=== PATIENT | male | born 1955 | race African-American/Black ===

== ENCOUNTER 2023-11-10 20:20 | Emergency (ER) | payer OTHER, SELFPAY ==
[2023-11-10 20:33] VITALS: BP 146/98
[2023-11-10 20:45] LABS: % Basophils 0.4 % (0-2); % Eosinophils 0.6 % (0-6); % Immature Granulocytes 1.2 % (0-0.5); % Lymphocytes 17.5 % (20.5-51.1); % Monocytes 5.1 % (1.7-9.3); % Neutrophils 75.2 % (42.2-75.2); Absolute Eosinophils 0.1 10^3/uL (0-0.7); Absolute Immature Granulocytes 0.1 10^3/uL (0-0.05); Absolute Lymphocytes 1.8 10^3/uL (1.2-3.4); Absolute Monocytes 0.5 10^3/uL (0.1-0.6); Absolute Neutrophils 7.5 10^3/uL (1.4-6.5); Hematocrit 45.4 % (39.0-52.0); Hemoglobin 14.8 g/dL (13.0-18.0); Mean Corp Hgb Conc. 32.6 g/dL (33.0-37.0); Mean Corpuscular Hgb 31.8 pg (27.0-31.0); Mean Corpuscular Volume 97.4 fL (80.0-94.0); Mean Platelet Volume 10.5 fL (7.4-10.4); Nucleated Red Blood Cells % 0 % (-); Platelet Count 270 10^3/uL (130-400); Red Blood Cell Count 4.66 10^6/uL (4.70-6.10); Red Cell Dist. Width 13.5 % (11.5-14.5)
[2023-11-10 21:05] VITALS: BP 130/87
[2023-11-10 21:09] LABS: ALT (SGPT) 24 U/L (0-50); AST (SGOT) 26 U/L (17-59); Albumin 4.1 g/dl (3.5-5.0); Alkaline Phosphatase 81 U/L (38-126); Blood Urea Nitrogen 18 mg/dl (9-20); Calcium 9.2 mg/dl (8.4-10.2); Carbon Dioxide 24 mmol/L (22-30); Chloride 108 mmol/L (98-107); Glucose 138 mg/dl (70-99); Potassium 4.4 mmol/L (3.5-5.1); Sodium 136 mmol/L (135-145); Total Bilirubin 0.8 mg/dl (0.2-1.3); eGFR > 60.00
[2023-11-10 21:12] LABS: Troponin I < 0.012 ng/ml
--- NOTE | 2023-11-10 21:25 | ED.GENMED ---
History of Present Illness
General
Chief Complaint: Heart Rate Problem
Source: patient
Exam Limitations: none
Time Seen by Provider: 11/10/23 21:12
Nursing documentation reviewed up to this point in time: agreed with
Travel History
Have you had any contact with someone who has COVID-19?: No
Do you have any symptoms of coronavirus? Fever > 100 degrees, chills, cough, shortness of breath, sore throat, loss of taste or smell, muscle aches, or headache?: No
History of Present Illness
History of Present Illness:
Patient with history of paroxysmal atrial fibrillation on Coumadin, presents to ED secondary to recurrent chest palpitations associated with 'not feeling well' starting this afternoon. In addition, his Apple Watch also told him that he was in
atrial fibrillation rhythm, which has not happened since cardiac ablation 2 years ago. Denies chest pain. Denies shortness of breath. Denies nausea or vomiting. Denies any diaphoresis. Denies recent illness. Denies recent change in medications
today. Denies recent travel or surgery. Patient has not missed any of his medications.
Past History
Past History
ED Past Medical History: Arrthythmia (afib-on coumadin), Cancer (Prostate cancer), HTN, Hypercholesterolemia and Other (Osteoarthritis)
ED Past Surgical History: Cardiac (Cardioversion for A. fib), Orthopedic (Right carpal tunnel release, right elbow surgery 07/21/2017; bilateral hip replacement 2002, Achilles tendon repair, left knee arthroscopy) and Urological (Prostatectomy)
Social History
Tobacco: Non-smoker
Alcohol: Occasional
Personal:
Living: with family
Employment: Employed
Family History
Family History: Hypertension
Review of Systems
Review of Systems
Allergies reviewed?: Yes
All Other Systems: ROS reviewed and negative except as documented in HPI and ROS
Constitutional: Reports no symptoms
EENT: Reports no symptoms
Respiratory: Reports no symptoms
Cardiac: Reports palpitations
ABD/GI: Reports no symptoms
: Reports no symptoms
Musculoskeletal: Reports no symptoms
Skin: Reports no symptoms
Neurological: Reports no symptoms
Phy Exam
Physical Exam
Physical Exam:
Physical Exam
General: no apparent distress, not acutely ill. afebrile
Head: nc/at eomi
Neck: supple. no meningeal signs.
Heart: irregularly irregular, tachycardic, no murmur. equal radial pulses.
Lungs: no acute respiratory distress. clear bilaterally
Abdomen: normal bowel sounds. not tender.
Neuro: alert and oriented. no focal neurological deficits
Skin: no rash
Psychiatric: well kept. interactive and cooperative
Extremities: no edema. no calf tenderness.
Course
Orders/Labs/Results
Orders:
Orders
11/10/23 20:23
Electrocardiogram (*1) Urgent
Reason for Study: Palpitations
EKG- Treatment ONCE
11/10/23 20:33
Cardiac Monitoring- Treatment ONCE
IV Insert/Care/Rem.- Treatment PRN
O2 Therapy [RESP] Urgent
Titrate/Wean O2 to maintain O2 sat greater than (%): 90
Special Instructions: Maintain sats >/=90%
Pulse Ox/spot Check [RESP] Urgent
Quantity: 1
Special Instructions: ON ROOM AIR
11/10/23 20:39
Complete Blood Count/With Diff Urgent
Comprehensive Metabolic Panel Urgent
Troponin I Urgent
11/10/23 21:22
Diltiazem HCl [Cardizem] 20 mg IV NOW STA
11/10/23 21:23
0.9% Sodium Chloride 500 ml [Nss] 500 ml IV BOLUS
11/10/23 21:24
PTT Urgent
Prothrombin Time Urgent
11/10/23 22:00
Diltiazem 125 mg/125 ml Nss [Cardizem] 125 mg in 125 ml IV PER PROTOCOL
Initial dose in mg/hr, then titrate:: 5
Titrate to keep:: Heart rate 80-100 bpm
Titrate by mg/hr:: 5 mg/hr
Frequency of titrations (minutes):: 15
Maximum dose in mg/hr:: 15
Abnormal Lab Results
11/10/23 11/10/23
20:39 21:24
RBC 4.66 L 10^6/uL
(4.70-6.10)
MCV 97.4 H fL
(80.0-94.0)
MCH 31.8 H pg
(27.0-31.0)
MCHC 32.6 L g/dL
(33.0-37.0)
MPV 10.5 H fL
(7.4-10.4)
Abs Immat Gran (auto) 0.1 H 10^3/uL
(0-0.05)
Absolute Neuts (auto) 7.5 H 10^3/uL
(1.4-6.5)
Immature Gran % 1.2 H %
(0-0.5)
Lymphocytes % 17.5 L %
(20.5-51.1)
PT 28.8 H Sec
(11.4-14.6)
APTT 54.1 H Sec
(23.4-35.0)
Chloride 108 H mmol/L
(98-107)
Glucose 138 H mg/dl
(70-99)
11/10/23 20:39
11/10/23 20:39
Vital Signs
Initial and Last Documented VS:
Initial Vital Signs
Temp Pulse Resp Pulse Ox
98.1 F 45 16 98
11/10/23 20:24 11/10/23 20:24 11/10/23 20:24 11/10/23 20:24
Last Documented Vital Signs
Temp Pulse Resp BP Pulse Ox
98.1 F 76 20 111/92 98
11/10/23 20:24 11/10/23 23:15 11/10/23 23:15 11/10/23 23:00 11/10/23 20:24
MDM/Problems Addressed
MDM/Problems Addressed:
Patient presents to ED in rapid atrial fibrillation, improved after IV fluid administration along with Cardizem treatment. Patient otherwise with unremarkable blood work. Discussed treatment options with patient and his spouse, including
cardioversion versus better rate control with outpatient follow-up with his client services director. At this time, as he has no complaints and feels 'normal', would like to be discharged home. As such, decision made to discharge patient home with following
recommendation: Patient is to take 100 mg of metoprolol in a.m. and 75 mg of metoprolol at nighttime, until reevaluation with his client services director. Will return to ED with any worsening symptoms.
*EKG
Interpreted by ED Provider?: Yes
EKG Intrepretation Date: 11/10/23
Heart Rate: 119
Rate: tachycardiac
Rhythm: a-fib
[place]: normal axis
Interval: normal interval
*Critical Care Note
Total Time (30-74mins, 75-104mins- exclusive of procedures): Not Applicable
ED Attending Note
-
Portions of this chart may have been created with voice recognition software.� Occasional wrong word or��sound alike� substitutions may have occurred due to the inherent limitations of voice recognition software.
Discharge Plan
Departure
Patient Disposition: Home (Routine Discharge)
Date of Disposition: 11/10/23
Time of Disposition: 22:59
Patient with high blood pressure during this ER visit?: Yes
Condition: Good
Discharge Problem:
Atrial fibrillation
Instructions: Atrial Fibrillation (DC)
Prescriptions:
No Action
atorvastatin 10 MG tablet
10 mg PO HS
pantoprazole 40 MG tablet,delayed release (DR/EC)
40 mg PO DAILY PRN (Reason: indigestion)
spironolactone 25 mg Tablet
25 mg PO DAILY Qty: 30 3RF
warfarin [Jantoven] 5 mg Tablet
5 mg PO QPM Qty: 30 0RF
Entresto 49-51 mg Tablet
1 tab PO BID Qty: 60 1RF
metoprolol succinate 50 mg Tablet Extended Release 24 Hr
75 mg PO BID
amiodarone [Pacerone] 200 mg Tablet
400 mg PO DAILY Qty: 60 1RF
Referrals:
Bill Dodson DO [Family Provider] -
José Francisco MD [Active] -
Activity Restrictions/Additional Instructions:
As discussed, please follow-up with your client services director for further evaluation and treatment. In the meantime, please take extra 25 mg of metoprolol for better heart rate control.
Interventions
Interventions:
*Risk Screen - Suicide Last Done: 11/10/23 20:30
*General Assessment Last Done: 11/10/23 20:30
*Neglect/Abuse Screening Last Done: 11/10/23 20:30
ED- Fall Risk Assessment Last Done: 11/10/23 21:45
*ED COVID-19 Vaccine History Last Done: 11/10/23 20:30
*Nursing Disposition Last Done: 11/10/23 23:46
ED- Cardiac Assessment Last Done: 11/10/23 21:45
ED- Pulmonary Assessment Last Done: 11/10/23 21:45
Discharge Date and Time
Discharge Date/Time: 11/10/23 23:48
Print Language: MAURITIAN
[2023-11-10] MEDS: CARDIZEM 20 MG IV (21:37)
[2023-11-10 21:38] LABS: INR 2.67; PT 28.8 Sec (11.4-14.6)
[2023-11-10] MEDS: NSS 500 IV (21:38)
[2023-11-10 21:39] LABS: APTT 54.1 Sec (23.4-35.0)
[2023-11-10] MEDS: CARDIZEM 125 IV (21:56)
[2023-11-10 22:00] VITALS: BP 108/73
[2023-11-10 23:00] VITALS: BP 111/92
== END 2023-11-10 23:48 | disposition home or self-care (01) ==
LOC: EMR 20:20
PROVIDERS: EMERGENCY PHYSICIAN Emergency Medicine; FAMILY PHYSICIAN Family Medicine
DX: I48.91 Unspecified atrial fibrillation (principal); Z79.01 Long term (current) use of anticoagulants; Z85.46 Personal history of malignant neoplasm of prostate; I10 Essential (primary) hypertension; E78.00 Pure hypercholesterolemia, unspecified; M19.90 Unspecified osteoarthritis, unspecified site; Z82.49 Family history of ischemic heart disease and other diseases of the circulatory system
CPT/HCPCS: 99283; 96374; 96376; 96361; 80053; 84484; 85025; 85610; 85730; 93005

== ENCOUNTER 2023-11-12 23:59 | Inpatient (IN) | payer OTHER, SELFPAY ==
[2023-11-12] VITALS (7 sets, daily range): BP systolic 121–129; BP diastolic 77–100; BMI 41.2
--- NOTE | 2023-11-12 21:16 | ED.GENMED ---
History of Present Illness
General
Chief Complaint: Heart Rate Problem
Source: patient
Exam Limitations: none
Time Seen by Provider: 11/12/23 21:02
Travel History
Have you had any contact with someone who has COVID-19?: No
Do you have any symptoms of coronavirus? Fever > 100 degrees, chills, cough, shortness of breath, sore throat, loss of taste or smell, muscle aches, or headache?: No
History of Present Illness
History of Present Illness:
This is a 68 year old male that comes in with c/o atrial fib. States that he was her on and he was given the option of cardioversion of mediation change. Patient choose to change his medication and went home. States that his Metoprolol was
increased to 100mg in the am and 75mg in the pm. States that he called them on Tuesday as he was not feeling any better and made an appointment for Tuesday. States that he is still not feeling good so he came in. States that he is SOB with walking
and has a headache. Denies any fever, chills, chest pain, abd pain, nausea, vomiting, diarrhea, dizziness, urinary burning.
Past History
Past History
ED Past Medical History: Arrthythmia (afib-on coumadin), Cancer (Prostate cancer), GERD, HTN, Hypercholesterolemia and Other (Osteoarthritis, back and neck pain, )
ED Past Surgical History: Cardiac (Cardioversion for A. fib), Orthopedic (Right carpal tunnel release, right elbow surgery 07/21/2017; bilateral hip replacement 2002, Achilles tendon repair, left knee arthroscopy Bilateral knee replacements) and
Urological (Prostatectomy)
Social History
Tobacco: Non-smoker
Alcohol: Occasional
Personal:
Living: with family
Employment: Employed
Family History
Family History: Hypertension
Review of Systems
Review of Systems
All Other Systems: ROS reviewed and negative except as documented in HPI and ROS
Constitutional: Reports no symptoms; Denies fever or chills
EENT: Reports no symptoms
Respiratory: Reports trouble breathing; Denies cough
Cardiac: Denies chest pain
ABD/GI: Reports no symptoms; Denies abdominal pain, nausea, vomiting or diarrhea
: Reports no symptoms
Musculoskeletal: Reports no symptoms
Skin: Reports no symptoms
Neurological: Reports headache; Denies dizzy
Psychiatric: Reports no symptoms
Phy Exam
General Physical Exam
General Presentation: no apparent distress
General age: appears stated age
General Skin: warm and dry
General Habitus: normal
General Mental: alert
General Hydration: appears well hydrated
ENT Exam
ENT Exam: TM's normal, pharynx normal and neck supple
Eye Exam
Eye Exam: EOMI
Cardiovascular Exam
Cardiovascular Exam: no edema, normal peripheral pulses and irregularly irregular
Pulmonary Exam
Pulmonary Exam: lungs clear, no respiratory distress, no rales, chest non tender, no crackles, no rhonchi, no wheezing and no cough
Gastrointestinal Exam
Gastrointestinal Exam: normal bowel sounds, non tender, soft, no organomegaly, no pulsatile mass and non distended
Musculoskeletal Exam
Musculoskeletal Exam: full ROM and no edema
Skin Exam
Skin Exam: normal color, warm/dry, no rash and no petechia
Psychiatric Exam
Psychiatric Exam: normal mood/affect
Course
Orders/Labs/Results
Orders:
Orders
11/12/23 19:07
EKG [Electrocardiogram (*1)] Urgent
Reason for Study: Palpitations
11/12/23 19:08
EKG- Treatment ONCE
11/12/23 21:14
CR Chest - 2 Views Urgent
Comment:
Reason For Exam: SOB
11/12/23 21:15
Metoprolol [Lopressor] 5 mg IV NOW STA
11/12/23 21:22
Complete Blood Count/With Diff Urgent
11/12/23 21:23
Comprehensive Metabolic Panel Urgent
NT-proBNP Urgent
Prothrombin Time Urgent
Troponin I Urgent
Abnormal Lab Results
11/12/23 11/12/23
21:22 21:23
RBC 4.47 L 10^6/uL
(4.70-6.10)
MCH 32.0 H pg
(27.0-31.0)
MPV 10.5 H fL
(7.4-10.4)
Abs Immat Gran (auto) 0.2 H 10^3/uL
(0-0.05)
Absolute Neuts (auto) 7.0 H 10^3/uL
(1.4-6.5)
Immature Gran % 2.0 H %
(0-0.5)
Neutrophils % 77.9 H %
(42.2-75.2)
Lymphocytes % 14.3 L %
(20.5-51.1)
PT 31.1 H Sec
(11.4-14.6)
Chloride 110 H mmol/L
(98-107)
Glucose 122 H mg/dl
(70-99)
11/12/23 21:22
11/12/23 21:23
Chloride slightly elevated. Glucose nonfastiong. PT 31.1 with INR 3.0. Troponin <0.012, Pro-BNP 1600
Vital Signs
Initial and Last Documented VS:
Initial Vital Signs
Temp Pulse Resp BP Pulse Ox
98.2 F 60 18 127/77 96
11/12/23 19:06 11/12/23 19:06 11/12/23 19:06 11/12/23 19:06 11/12/23 19:06
Last Documented Vital Signs
Temp Pulse Resp BP Pulse Ox
98.2 F 110 20 122/90 98
11/12/23 19:06 11/12/23 22:17 11/12/23 22:17 11/12/23 22:17 11/12/23 22:17
MDM/Problems Addressed
Differential Diagnosis Includes:
Atrial fib
MDM/Problems Addressed:
This is a 68 year old male that comes in with c/o atrial fib. States that he was here on with atrial fib and he decided to change his medication instead of a Cardioversion. States that he is not feeling well. States that he is SOB with
walking and has a headache.
Will check labs, chest x-ray. Will give Lopressor.
Back into see patient. Patient heart rate is 111 at this time and he remains in Atrial fib. Case discussed with Dr. Kent. Will admit patient has Chest x-ray shows slight CHF and will give IV lasix. Patient will see weight loss physician tomorrow. Hospitalist
notified.
Chronic conditions affecting care:
Atrial fib,
Acute Exacerbation and/or Progression of Chronic Illness:
Atrial fib
*Radiology
Radiology exam reviewed: preliminary read by ED provider (Chest- slight increased vascular congestion. )
*Pulse Oximetry
Patient hypoxic: no
*EKG
Interpreted by ED Provider?: Yes
Heart Rate: 125
Rate: tachycardiac
Rhythm: a-fib
[place]: normal axis
QRS Pattern: normal QRS
Ischemia: T-wave inversion (V5, V6)
*Dive Master Interpretation
Rate: tachycardiac
Interpretation: abnormal
Heart Rate: 120
Rhythm: a-fib
*Critical Care Note
Total Time (30-74mins, 75-104mins- exclusive of procedures): Not Applicable
ED Attending Note
-
Portions of this chart may have been created with voice recognition software.� Occasional wrong word or��sound alike� substitutions may have occurred due to the inherent limitations of voice recognition software.
Discharge Plan
Departure
Patient Disposition: Admit
Date of Disposition: 11/12/23
Time of Disposition: 23:13
Admit to: Telemetry
Presentation/result/management discussed w/ accepting MD/DO: Hospitalist
Patient with high blood pressure during this ER visit?: Yes
Condition: Good
Covid-19: Not Applicable
Discharge Problem:
Atrial fibrillation, Mild congestive heart failure
Prescriptions:
No Action
atorvastatin 10 MG tablet
10 mg PO HS
pantoprazole 40 MG tablet,delayed release (DR/EC)
40 mg PO DAILY PRN (Reason: indigestion)
spironolactone 25 mg Tablet
25 mg PO DAILY Qty: 30 3RF
warfarin [Jantoven] 5 mg Tablet
5 mg PO QPM Qty: 30 0RF
Entresto 49-51 mg Tablet
1 tab PO BID Qty: 60 1RF
metoprolol succinate 50 mg Tablet Extended Release 24 Hr
75 mg PO BID
amiodarone [Pacerone] 200 mg Tablet
400 mg PO DAILY Qty: 60 1RF
Referrals:
Bill Dodson DO [Family Provider] -
Interventions
Interventions:
*Risk Screen - Suicide Last Done: 11/12/23 21:01
*General Assessment Last Done: 11/12/23 21:01
*Neglect/Abuse Screening Last Done: 11/12/23 21:01
ED- Fall Risk Assessment Last Done: 11/12/23 21:01
*ED COVID-19 Vaccine History Last Done: 11/12/23 21:01
ED- Cardiac Assessment Last Done: 11/12/23 21:01
ED- Pulmonary Assessment Last Done: 11/12/23 21:01
Discharge Date and Time
Print Language: GEORGIAN
[2023-11-12 21:36] LABS: % Basophils 0.7 % (0-2); % Eosinophils 0.4 % (0-6); % Lymphocytes 14.3 % (20.5-51.1); % Monocytes 4.7 % (1.7-9.3); % Neutrophils 77.9 % (42.2-75.2); Absolute Basophils 0.1 10^3/uL (0-0.2); Absolute Immature Granulocytes 0.2 10^3/uL (0-0.05); Absolute Lymphocytes 1.3 10^3/uL (1.2-3.4); Absolute Monocytes 0.4 10^3/uL (0.1-0.6); Hematocrit 41.8 % (39.0-52.0); Hemoglobin 14.3 g/dL (13.0-18.0); Mean Corp Hgb Conc. 34.2 g/dL (33.0-37.0); Mean Corpuscular Volume 93.5 fL (80.0-94.0); Mean Platelet Volume 10.5 fL (7.4-10.4); Nucleated Red Blood Cells % 0 % (-); Platelet Count 263 10^3/uL (130-400); Red Blood Cell Count 4.47 10^6/uL (4.70-6.10); Red Cell Dist. Width 13.5 % (11.5-14.5)
[2023-11-12 21:45] LABS: PT 31.1 Sec (11.4-14.6)
[2023-11-12 21:49] LABS: ALT (SGPT) 30 U/L (0-50); AST (SGOT) 29 U/L (17-59); Albumin 3.7 g/dl (3.5-5.0); Alkaline Phosphatase 73 U/L (38-126); Blood Urea Nitrogen 20 mg/dl (9-20); Calcium 9.2 mg/dl (8.4-10.2); Carbon Dioxide 22 mmol/L (22-30); Chloride 110 mmol/L (98-107); Estimated Creatinine Clearance > 125 ml/min; Glucose 122 mg/dl (70-99); Sodium 137 mmol/L (135-145); Total Bilirubin 0.7 mg/dl (0.2-1.3); Total Protein 6.6 g/dl (6.3-8.2); eGFR > 60.00
[2023-11-12 22:05] LABS: NT-proBNP 1600 pg/ml; Potassium 4.3 mmol/L (3.5-5.1); Troponin I < 0.012 ng/ml
[2023-11-12] MEDS: LOPRESSOR 5 MG IV (22:13)
--- NOTE | 2023-11-12 23:43 | HPS.HSE ---
Family Physician
-
Family Physician: Bill Dodson
Chief Complaint
-
Afib with rapid rate and CHF
History of Present Illness
68 year old male that comes in with c/o atrial fib with rapid rate. States that he was here two days ago and was given the option of cardioversion of mediation change, he choose to change his medication and went home. States that his Metoprolol was
increased to 100mg in the am and 75mg in the pm. States that today he is still not feeling good so he came in. He has SOB with walking and has a headache. He Denies any fever, chills, chest pain, abd pain, nausea, vomiting, diarrhea, dizziness,
urinary burning. He was sitting in bed leaning forward at the time of my interview.
Medical History
Past Medical History
Past Medical History: Reports Other
Additional Past Medical History:
Arrthythmia (afib-on coumadin), multiple cardioversions
Cancer (Prostate cancer),
GERD,
essential HTN,
Hypercholesterolemia
Osteoarthritis,
back and neck pain
Right carpal tunnel release,
right elbow surgery 07/21/2017;
bilateral hip replacement 2002,
Achilles tendon repair,
left knee arthroscopy
Bilateral knee replacements
Prostatectomy
Past Surgical History: Reports Other
Additional Past Surgical History:
See above
Social History
Tobacco: Non-smoker
Alcohol: None
Drug: None
Personal:
Living: With Family
Family History
Family History: Not pertinent
Allergies / Home Medications
Allergies reflects when Allergies were last updated in [employer].
Home Medications with original date entered in [employer]
Allergy/Medication List:
Allergies
Allergy/AdvReac Type Severity Reaction Status Date / Time
No Known Drug Allergies Allergy Unknown Verified 11/10/23 20:30
Home Medications
atorvastatin 10 mg tablet 10 mg PO HS High cholesterol 01/27/18
pantoprazole 40 mg tablet,delayed release 40 mg PO DAILY PRN indigestion 03/24/22
sacubitril 49 mg-valsartan 51 mg tablet (Entresto) 1 tab PO BID #60 tabs 03/30/22
spironolactone 25 mg tablet 25 mg PO DAILY #30 tabs 03/30/22
warfarin 5 mg tablet (Jantoven) 5 mg PO QPM #30 tabs 03/30/22
amiodarone 200 mg tablet (Pacerone) 400 mg (2 x 200 mg) PO DAILY #60 tabs 04/22/22
metoprolol succinate 50 mg tablet,extended release 24 hr 75 mg PO BID 04/22/22
Review of Systems
-
History Source: Patient
A 12 point ROS was completed and negative except as noted: Yes
Physical Exam
Vital Signs
Vital Signs
Temp Pulse Resp BP Pulse Ox
98.2 F 110 20 122/90 98
11/12/23 19:06 11/12/23 22:17 11/12/23 22:17 11/12/23 22:17 11/12/23 22:17
Physical Exam
General: Well Developed, Well Nourished, No Apparent Distress, Comfortable and Obese
HEENT: NormoCephalic, Nose Appears Normal and Ears Appear Normal
Respiratory: Clear and Decreased Breath Sounds
Cardiac: S1/S2, Irregular Rhythm and Tachycardia
GI: Soft, Non Tender and Non Distended
Musculoskeletal: No Clubbing, No Cyanosis and No Edema
Skin: Warm and Dry; No Rash
Neuro: Awake, Alert, Oriented and AO x 3
Psych: Calm
Laboratory Results
-
11/12/23 21:22
11/12/23 21:23
Laboratory Results
PT 31.1 Sec (11.4-14.6) H 11/12/23 21:23
INR 3.00 11/12/23 21:23
Total Bilirubin 0.7 mg/dl (0.2-1.3) 11/12/23 21:23
AST 29 U/L (17-59) 11/12/23 21:23
ALT 30 U/L (0-50) 11/12/23 21:23
Alkaline Phosphatase 73 U/L (38-126) 11/12/23 21:23
Troponin I < 0.012 ng/ml 11/12/23 21:23
Data Reviewed
-
Lab Data: Labs Reviewed by me
Impression/Plan
-
IMPRESSION:
68 man with afib, on coumadin, here with rapid afib. INR 3.0
PLAN:
1. Afib with RVR - continue dilt gtt, titrate as needed
Cardiology consult in am
Tele
MARVA
IMU given the titration of the dilt gtt
2. Probable CHF from the afib
IV lasix
Full code
COumadin for DVTp
[2023-11-12] MEDS: LASIX 20 MG IV (23:54)
[2023-11-13] VITALS (11 sets, daily range): BP systolic 118–158; BP diastolic 78–119; BMI 40.3
[2023-11-13] MEDS: CARDIZEM 125 IV ×2 (00:04→21:38)
[2023-11-13] MEDS: CARDIZEM 15 MG IV (00:04)
[2023-11-13 04:06] LABS: Hematocrit 43.6 % (39.0-52.0); Mean Corp Hgb Conc. 34.4 g/dL (33.0-37.0); Mean Corpuscular Hgb 31.8 pg (27.0-31.0); Mean Corpuscular Volume 92.6 fL (80.0-94.0); Mean Platelet Volume 10.3 fL (7.4-10.4); Platelet Count 241 10^3/uL (130-400); Red Blood Cell Count 4.71 10^6/uL (4.70-6.10); Red Cell Dist. Width 13.3 % (11.5-14.5); White Blood Cell Count 10.5 10^3/uL (4.8-10.8)
[2023-11-13 04:32] LABS: Troponin I < 0.012 ng/ml
[2023-11-13 04:33] LABS: Blood Urea Nitrogen 18 mg/dl (9-20); Calcium 9.4 mg/dl (8.4-10.2); Carbon Dioxide 23 mmol/L (22-30); Chloride 108 mmol/L (98-107); Estimated Creatinine Clearance > 125 ml/min; Glucose 111 mg/dl (70-99); Sodium 138 mmol/L (135-145); eGFR > 60.00
--- NOTE | 2023-11-13 06:26 | PTCARENOTE ---
Pt admitted to IVU at approximately 0340. HR Afib 90s. Cardizem infusing at 5mg/hr. Pt belongings w/ pt. oriented pt to unit.
[2023-11-13] MEDS: ENTRESTO 49 MG/51 MG 1 TAB PO ×2 (08:04→19:28)
[2023-11-13] MEDS: TOPROL XL 75 MG PO ×2 (08:05→19:29)
[2023-11-13] MEDS: LASIX 20 MG IV ×2 (08:06→16:28)
[2023-11-13 11:40] LABS: Glycohemoglobin (HgbA1c) 5.9 % (4.0-5.6)
[2023-11-13] MEDS: TYLENOL 650 MG PO (12:49)
[2023-11-13 12:54] LABS: Troponin I < 0.012 ng/ml
--- NOTE | 2023-11-13 13:17 | W.PN.HOSP.TC ---
Today's Communication/Plan
-
Monitor vital signs see plan
Echo
Wean dilt drip as tolerated
cw metoprolol
on coumadin; monitor INR
Assessment / Plan
Assessment / Plan
General: Well Developed, Well Nourished, No Apparent Distress, Comfortable and Obese
HEENT: NormoCephalic, Nose Appears Normal and Ears Appear Normal
Respiratory: Clear and Decreased Breath Sounds
Cardiac: S1/S2, Irregular Rhythm and Tachycardia
GI: Soft, Non Tender and Non Distended
Musculoskeletal: No Clubbing, No Cyanosis and No Edema
Skin: Warm and Dry; No Rash
Neuro: Awake, Alert, Oriented and AO x 3
Psych: Calm
History of paroxysmal atrial fibrillation, now in A-fib with RVR
Now heart rate improved
Cardiology following
had ablation x2 in past
Check echo
questionable CHF from the afib; unknown EF
IV lasix for now
check echo
Last echo in 2021 with EF 50 to 55%. Mild dilated aortic root and ascending aorta
on metoprolol and entresto
cardiology consulted
On Coumadin, INR daily
Prediabetes
A1c 5.9
Monitor
Full code
Coumadin for DVTp
Anticipated Discharge: 24 - 48 hours
Subjective/Interval History
-
Date of Service: November 13, 2023
Denies chest pain
Objective Data
-
Labs:
Laboratory Results
11/13/23
03:57
WBC 10.5
Hgb 15.0
Hct 43.6
Plt Count 241
Sodium 138
Potassium 4.0
Chloride 108 H
Carbon Dioxide 23
BUN 18
Creatinine 0.7
Glucose 111 H
Calcium 9.4
Vital Signs:
Vital Signs
Temp Pulse Resp BP Pulse Ox
98 F 91 14 136/102 96
11/13/23 08:37 11/13/23 10:30 11/13/23 08:37 11/13/23 08:04 11/13/23 08:42
I&O
11/12/23 11/13/23 11/14/23
06:59 06:59 06:59
Output Total 2350 / 2350 1275 / 1275
Balance -2350 / -2350 -1275 / -1275
[2023-11-13 16:32] LABS: INR 2.24; PT 24.7 Sec (11.4-14.6)
--- NOTE | 2023-11-13 16:42 | CON.CAR ---
Addendum entered and electronically signed by Shakir Vides MD 11/14/23 08:13:
INR 10/14/2022 2.2 at PCP office
INR 09/15/2022 2.5 at PCP office
Held in Sep a few days but not since.
INR all good
Original Note:
Consultation
Consultation Request
Date/Time Consultation Requested: 11/13/2023 at 0335 hrs.
Date/Time Consultation Performed: 11/13/2023 at 1530 hrs.
Requesting Provider: Maximino Boyce MD
Performing Provider: Shakir Vides MD
Reason for Consultation: Recurrent atrial fibrillation
Medical History
-
Chief Complaint: Fatigue and palpitations
History of Present Illness:
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 This is his first recurrence of arrhythmia since April 2022.
Onset on April 22, 2022 he required repeat ablation. His first ablation was on January 02, 2021.
Symptoms in atrial fibrillation include rapid irregular palpitations fatigue and exercise intolerance. Symptoms persisted despite increasing metoprolol dose.
In the past he has had a tachycardia induced cardiomyopathy. His LV function is improved and he is continuing on medications.
Past Medical History
Past Medical History: Arrhythmias, HTN and Other (DJD, urinary frequency with bladder spasms, prostate cancer, joint disease)
Past Surgical History: Orthopedic (Bilateral total hip and knee replacements) and Urological (Prostatectomy)
Social History
Tobacco: Former Smoker
Alcohol: Occasional
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
Family History
Family History: Other (Father had a pacemaker and systemic hypertension. Mother has hypertension)
Allergies / Home Medications
Allergy/AdvReac Type Severity Reaction Status Date / Time
No Known Drug Allergies Allergy Unknown Verified 11/10/23 20:30
�Medication �Instructions �Recorded �Confirmed �Type
atorvastatin 10 mg tablet 10 mg PO HS High cholesterol 01/27/18 11/13/23 History
sacubitril 49 mg-valsartan 51 mg 1 tab PO BID #60 tabs 03/30/22 11/13/23 Rx
tablet (Entresto)
metoprolol succinate 50 mg 75 mg PO AMHS 04/22/22 11/13/23 History
tablet,extended release 24 hr
metoprolol succinate 100 mg PO AMHS 11/13/23 11/13/23 History
mirabegron 50 mg tablet,extended 50 mg PO DAILY 11/13/23 11/13/23 History
release 24 hr (Myrbetriq)
oxycodone-acetaminophen 10 mg-325 1 tab PO BID 11/13/23 11/13/23 History
mg tablet (Percocet)
warfarin 5 mg tablet (Jantoven) 9 mg PO QPM 11/13/23 11/13/23 History
Review of Systems
-
Constitutional: Fatigue
Cardiac: Palpitations
Abdomen/GI: No Symptoms
Physical Exam
Vital Signs
Temp Pulse Resp BP Pulse Ox
98.2 F 99 20 127/84 93
11/13/23 15:57 11/13/23 16:15 11/13/23 15:57 11/13/23 15:57 11/13/23 15:57
Lab Results
11/13/23 03:57
11/13/23 03:57
Troponin I < 0.012 ng/ml 11/13/23 12:02
Dxo-R-Mvdllqqrrcm Pept 1600 pg/ml 11/12/23 21:23
Physical Exam
General: Well Developed and Well Nourished
HEENT: Normocephalic and Anicteric
Respiratory: Clear
Cardiac: S1/S2 and Irregular Rhythm
GI: Soft, Non Tender and Non Distended
Musculoskeletal: No Clubbing and No Cyanosis
Skin: Warm
Neuro: AO x 3 and No Motor Deficits
Psych: Calm
Impression / Plan
-
68 y/o male with AFIB on warfarin s/p PVI with CT line block 01/02/21, repeat PVI 04/22/2022, HTN, heart failure with improved ejection fraction, DJD, morbid obesity, BMI 40, and prostate CA who is here for continued symptomatic AFIB with palpitations
and fatigue
Recurrent symptomatic persisting A-fib: First recurrence since his second ablation in April 2022.
-Fast despite increased beta-jason dose
-Warfarin managed by PCP.
-[id number] 3 (heart failure, hypertension, and age 2)
-Will obtain INR is from PCP office
-If INR is permit we will progress to cardioversion on 11/14/2023
-Will update echocardiogram
-If A-fib recurs after cardioversion we can consider adding antiarrhythmic drugs. I personally sent few patients for third ablation. In the past the patient's QTc interval was felt to be a little bit long for dofetilide but we can reconsider once
he is in sinus rhythm. I reviewed risk factor modification for A-fib including weight loss, increased exercise, abstinence from alcohol. Third ablation is not out of the question. His severe left atrial enlargement suggested may be difficult for
ablation alone to hold sinus rhythm and we may want to see if we can add dofetilide. Given his young age I would be reluctant to add amiodarone for the long-term.
Heart failure with improved ejection fraction
-Continue current medical therapy
Hypertension
DJD
Back pain
Remote prostate cancer
Hx NSVT
Subjective:
Data Reviewed
-
EKG: Tracing Personally Visualized and interpreted (A-fib [address] and T wave changes. PVC.) and Other
Radiology: Other (Cardiac echo 08/06/2022 LVEF 50 to 55%, mild cLVH, ascending aorta dilated 4.2 cm, severe LAE, mild MR)
--- NOTE | 2023-11-13 17:15 | PTCARENOTE ---
Pt's HR went up in 130-140's while in BR. Recovered back to 90's with rest. He denies pain, has some SOB w/ exertion.
[2023-11-13] MEDS: COUMADIN 5 MG PO (18:16)
[2023-11-13] MEDS: LIPITOR 10 MG PO (21:39)
[2023-11-14] VITALS (8 sets, daily range): BP systolic 111–156; BP diastolic 65–101; BMI 39.6
--- NOTE | 2023-11-14 01:56 | PTCARENOTE ---
Pt received at start of shift, HR A-fib. Cardizem infusing at 5mg/hr. Pt educated on plan for CV (11/13) and NPO status at 0000. Pt states understanding, no questions at this time. Pt denies any CP, SOB, or lightheadedness/dizziness at this time.
Informed to notify RN if any questions, call melendrez within reach.
[2023-11-14 03:56] LABS: % Basophils 0.9 % (0-2); % Eosinophils 3.2 % (0-6); % Immature Granulocytes 1.9 % (0-0.5); % Lymphocytes 32.3 % (20.5-51.1); % Monocytes 6.8 % (1.7-9.3); % Neutrophils 54.9 % (42.2-75.2); Absolute Basophils 0.1 10^3/uL (0-0.2); Absolute Eosinophils 0.2 10^3/uL (0-0.7); Absolute Immature Granulocytes 0.1 10^3/uL (0-0.05); Absolute Lymphocytes 2.4 10^3/uL (1.2-3.4); Absolute Monocytes 0.5 10^3/uL (0.1-0.6); Absolute Neutrophils 4.1 10^3/uL (1.4-6.5); Hematocrit 42.3 % (39.0-52.0); Hemoglobin 14.6 g/dL (13.0-18.0); Mean Corp Hgb Conc. 34.5 g/dL (33.0-37.0); Mean Corpuscular Hgb 31.9 pg (27.0-31.0); Mean Corpuscular Volume 92.6 fL (80.0-94.0); Mean Platelet Volume 10.2 fL (7.4-10.4); Nucleated Red Blood Cells % 0 % (-); Platelet Count 235 10^3/uL (130-400); Red Blood Cell Count 4.57 10^6/uL (4.70-6.10); Red Cell Dist. Width 13.5 % (11.5-14.5); White Blood Cell Count 7.5 10^3/uL (4.8-10.8)
[2023-11-14 04:07] LABS: INR 2.22; PT 24.5 Sec (11.4-14.6)
[2023-11-14 04:20] LABS: Blood Urea Nitrogen 19 mg/dl (9-20); Calcium 9.1 mg/dl (8.4-10.2); Carbon Dioxide 26 mmol/L (22-30); Chloride 107 mmol/L (98-107); Estimated Creatinine Clearance 124 ml/min; Glucose 101 mg/dl (70-99); Potassium 3.6 mmol/L (3.5-5.1); Sodium 137 mmol/L (135-145); eGFR > 60.00
--- NOTE | 2023-11-14 08:02 | W.PN.CD ---
Today's Communication / Plan
-
keep NPO for cardioversion today
( NOTE INRs have been consstent reviewed INRs sharri had data from [facility] ( 08/22/23 - 2.8, 09/15/23 2.5, 10/15/23 -2.2). Back injection in early Sep but has been back on Coumadin for 6 weeks and clearly therapeutic for the past month ( >3 weeks).
INR 2.2
Impression / Plan
-
68 y/o male with AFIB on warfarin s/p PVI with CT line block 01/02/21, repeat PVI 04/22/2022, HTN, heart failure with improved ejection fraction, DJD, morbid obesity, BMI 40, and prostate CA who is here for continued symptomatic AFIB with palpitations
and fatigue
Recurrent symptomatic persisting A-fib: First recurrence since his second ablation in April 2022.
-Fast despite increased beta-jason dose
-Warfarin managed by PCP.
-[id number] 3 (heart failure, hypertension, and age 2)
-Will obtain INR is from PCP office
-If INR is permit we will progress to cardioversion on 11/14/2023
-Will update echocardiogram
-If A-fib recurs after cardioversion we can consider adding antiarrhythmic drugs. Per Dr Vides . In the past the patient's QTc interval was felt to be a little bit long for dofetilide but we can reconsider once he is in sinus rhythm. Third
ablation is not out of the question. Given his young age Brianne try ot avoid amiodarone for the long-term.
Heart failure with improved ejection fraction
-Continue current medical therapy
Hypertension
DJD
Back pain
Remote prostate cancer
Hx NSVT
Subjective:
Physical Exam
Vital Signs/Labs
Vital Signs
Temp Pulse Resp BP Pulse Ox
98.4 F 102 18 129/101 99
11/14/23 07:22 11/14/23 06:45 11/14/23 07:22 11/14/23 03:36 11/14/23 07:22
11/13/23 11/14/23 11/15/23
06:59 06:59 06:59
Actual Weight 131 kg 128.7 kg
11/14/23 03:41
11/14/23 03:41
PT 24.5 Sec (11.4-14.6) H 11/14/23 03:41
INR 2.22 11/14/23 03:41
11/12/23
21:23
Gxe-Q-Gmjtjctsvyh Pept 1600
LAB Results
11/12/23 11/13/23 11/13/23
21:23 03:57 08:31
Troponin I < 0.012 < 0.012 Cancelled
11/13/23 11/13/23 11/13/23
09:34 09:34 12:02
Troponin I Cancelled Cancelled < 0.012
Physical Exam
Cardiovascular: Rhythm/rate is irregular
GI: Soft
Neuro/Psych: Alert
Data Reviewed
-
Date of Service: November 14, 2023
Medical Decision Making: Reviewed Test Results
Echo: Other (await. ordered. )
Medical Tests (PFT, Pathology etc): Report Reviewed by me
Labs: Labs Reviewed by me
--- NOTE | 2023-11-14 09:04 | ITS.CL.CARDI ---
[facility] - Cardioversion
Cardioversion
Procedure Report:
Date of Procedure: November 14 2023
Procedure: Cardioversion
Indication: Symptomatic atrial fibrillation
Performing Physician: Maynor Stringer DO, FACC
Technique: The patient was brought to the holding area. Signed informed consent was obtained. A time out was called and performed. The patient was anesthetized by the anesthesia service. Anticoagulation status was reviewed and appropriate. R2 pads
were placed anteriorly and posteriorly. A 250 J synchronized biphasic shock restored normal sinus rhythm without significant bradycardia. There were no complications.
Conclusion: Uncomplicated cardioversion from atrial fibrillation to sinus rhythm.
Recommendation: Routine post cardioversion care. Continue retirement anticoagulation. Discussed with his via telephone.
--- NOTE | 2023-11-14 10:19 | CM ---
Reviewed chart. Met with Mr. Stark to review discharge plans. He states prior to admission he resides with his spouse, daughter, [id number] and granddaughter in a two story home with three steps to enter. He states he has to go up a full
flight of steps to get to bedroom/full bathroom. He states he has a powder room on the first floor. He states prior to admission he ambulates with a single point cane and independent with ambulation. He states he has a single point cane at home. He
states he has a prescription plan. Medical work-up in progress. The discharge plan is to return home with his family when medically stable.
[2023-11-14] MEDS: TOPROL XL 75 MG PO ×2 (11:27→20:34)
[2023-11-14] MEDS: KCL 40 MEQ PO (11:28)
[2023-11-14] MEDS: LASIX 20 MG IV ×2 (11:28→17:34)
[2023-11-14] MEDS: ENTRESTO 49 MG/51 MG 1 TAB PO ×2 (12:45→20:35)
--- NOTE | 2023-11-14 13:58 | W.PN.HOSP.TC ---
Today's Communication/Plan
-
Monitor vital signs see plan
Continue with Lasix
Continue with metoprolol
Echo pending
Assessment / Plan
Assessment / Plan
General: Well Developed, Well Nourished, No Apparent Distress, Comfortable and Obese
HEENT: NormoCephalic, Nose Appears Normal and Ears Appear Normal
Respiratory: Clear and Decreased Breath Sounds
Cardiac: S1/S2, Irregular Rhythm and Tachycardia
GI: Soft, Non Tender and Non Distended
Musculoskeletal: No Clubbing, No Cyanosis and No Edema
Skin: Warm and Dry; No Rash
Neuro: Awake, Alert, Oriented and AO x 3
Psych: Calm
History of paroxysmal atrial fibrillation, now in A-fib with RVR
Cardiology following, status post cardioversion 11/14/23, successfull
had ablation x2 in past
Check echo pending
questionable CHF from the afib; unknown EF
IV lasix for now
check echo pending
Last echo in 2021 with EF 50 to 55%. Mild dilated aortic root and ascending aorta
on metoprolol and entresto
cardiology consulted
On Coumadin, INR daily
Prediabetes
A1c 5.9
Monitor
Full code
Coumadin for DVTp
Anticipated Discharge: Within 24 hours
Subjective/Interval History
-
Date of Service: November 14, 2023
Denies pain
Objective Data
-
Labs:
Laboratory Results
11/14/23
03:41
WBC 7.5
Hgb 14.6
Hct 42.3
Plt Count 235
PT 24.5 H
INR 2.22
Sodium 137
Potassium 3.6
Chloride 107
Carbon Dioxide 26
BUN 19
Creatinine 0.8
Glucose 101 H
Calcium 9.1
Vital Signs:
Vital Signs
Temp Pulse Resp BP Pulse Ox
98.3 F 80 18 130/87 96
11/14/23 09:52 11/14/23 12:45 11/14/23 09:52 11/14/23 12:45 11/14/23 09:52
I&O
11/13/23 11/14/23 11/15/23
06:59 06:59 06:59
Output Total 2350 / 2350 2024
Balance -2350 / -2350 -2024 / -2024
[2023-11-14] MEDS: COUMADIN 3 MG PO (17:35)
[2023-11-14] MEDS: COUMADIN 5 MG PO (17:36)
[2023-11-14] MEDS: LIPITOR 10 MG PO (22:56)
--- NOTE | 2023-11-15 01:32 | PTCARENOTE ---
Sleeping at intervals. No complaints when questioned earlier.
[2023-11-15 03:22] VITALS: BP 135/85
[2023-11-15 04:04] LABS: % Eosinophils 3.4 % (0-6); % Immature Granulocytes 2.3 % (0-0.5); % Lymphocytes 26.2 % (20.5-51.1); % Monocytes 6.5 % (1.7-9.3); % Neutrophils 60.6 % (42.2-75.2); Absolute Basophils 0.1 10^3/uL (0-0.2); Absolute Eosinophils 0.3 10^3/uL (0-0.7); Absolute Immature Granulocytes 0.2 10^3/uL (0-0.05); Absolute Lymphocytes 2.1 10^3/uL (1.2-3.4); Absolute Monocytes 0.5 10^3/uL (0.1-0.6); Absolute Neutrophils 4.8 10^3/uL (1.4-6.5); Hemoglobin 14.7 g/dL (13.0-18.0); Mean Corp Hgb Conc. 32.7 g/dL (33.0-37.0); Mean Corpuscular Hgb 31.6 pg (27.0-31.0); Mean Corpuscular Volume 96.8 fL (80.0-94.0); Mean Platelet Volume 10.4 fL (7.4-10.4); Nucleated Red Blood Cells % 0 % (-); Platelet Count 222 10^3/uL (130-400); Red Blood Cell Count 4.65 10^6/uL (4.70-6.10); Red Cell Dist. Width 13.5 % (11.5-14.5); White Blood Cell Count 7.9 10^3/uL (4.8-10.8)
[2023-11-15 04:18] LABS: Blood Urea Nitrogen 20 mg/dl (9-20); Calcium 9.2 mg/dl (8.4-10.2); Carbon Dioxide 27 mmol/L (22-30); Chloride 106 mmol/L (98-107); Estimated Creatinine Clearance 109 ml/min; Glucose 100 mg/dl (70-99); Potassium 3.8 mmol/L (3.5-5.1); Sodium 138 mmol/L (135-145); eGFR > 60.00
[2023-11-15 04:39] LABS: INR 1.85; PT 21.2 Sec (11.4-14.6)
[2023-11-15 08:06] VITALS: BP 110/88
[2023-11-15] MEDS: ENTRESTO 49 MG/51 MG 1 TAB PO (08:26)
[2023-11-15] MEDS: LASIX 20 MG IV (08:27)
[2023-11-15] MEDS: TOPROL XL 75 MG PO (08:27)
[2023-11-15 08:30] VITALS: BMI 39.3
--- NOTE | 2023-11-15 08:41 | CM ---
Addendum entered by Talia Johnson 11/15/23 10:32:
Reviewed co-pay with Mr. Stark and he is agreeable to co-pay for Jardiance. Placed the one month free coupon in his red discharge folder.
Original Note:
Received consult to check on co-pay for Farxiga and Jardiance. Telephpone call to [facility] to check on co-pay. His co-pay for Farxiga would be $120.00 a month or $240.00 for 3 months via mail order. Jardiance co-pay for one month is $80.00 and $160
for 3 moth via mail order. He has an out of pocket cost of $2000.00 that has to be met. He has an exiting $31.18 to cover out of pocket cost. Once he mets his out of pocket cost the medications are free. So for example he would have to pay $80.00 a
one month supply of Jardiance and then the cost would be zero for the rest of the year.
--- NOTE | 2023-11-15 09:31 | W.PN.CD ---
Today's Communication / Plan
-
Start empagliflozin
Increase Metop
F/u as outpatient
We will sign off please call with questions/concerns.
Impression / Plan
-
68 y/o male with AFIB on warfarin s/p PVI with CT line block 01/02/21, repeat PVI 04/22/2022, HTN, heart failure with improved ejection fraction, DJD, morbid obesity, BMI 40, and prostate CA who is here for continued symptomatic AFIB with palpitations
and fatigue
Recurrent symptomatic persisting A-fib: First recurrence since his second ablation in April 2022.
- now s/p DCCV
- NSR
- cont metoprolol increased to 100 mg
Heart failure mid range EF 45-50%
- start Empagliflozin 10 mg
- cont Entresto and metop at 100 bid
- MRA as outpatient
Hypertension - stable
DJD
Back pain
Remote prostate cancer
Hx NSVT
Subjective: Feels OK would like to leave
Physical Exam
Vital Signs/Labs
Vital Signs
Temp Pulse Resp BP Pulse Ox
97.9 F 87 16 110/88 95
11/15/23 08:06 11/15/23 09:00 11/15/23 08:06 11/15/23 08:26 11/15/23 08:06
11/14/23 11/15/23 11/16/23
06:59 06:59 06:59
Actual Weight 283 lb 11.759 oz
11/15/23 03:28
11/15/23 03:28
PT 21.2 Sec (11.4-14.6) H 11/15/23 03:28
INR 1.85 11/15/23 03:28
11/12/23
21:23
Wtl-U-Qgnwikwegim Pept 1600
LAB Results
11/12/23 11/13/2324
21:23 03:57 08:31
Troponin I < 0.012 < 0.012 Cancelled
11/13/23 11/13/23 11/13/23
09:34 09:34 12:02
Troponin I Cancelled Cancelled < 0.012
Physical Exam
Constitutional: No acute distress
EENT: Anicteric
Cardiovascular: Rhythm & rate is regular and Pedal edema is absent
Respiratory: Respiratory effort normal
GI: Soft
Data Reviewed
-
Date of Service: November 15, 2023
EKG: Tracing Personally Visualized and interpreted (NSR w/ PVCS)
Echo: Report Reviewed by me (EF 450-50%)
Labs: Labs Reviewed by me
[2023-11-15] MEDS: JARDIANCE 10 MG PO (10:57)
[2023-11-15 11:29] VITALS: BP 123/85
--- NOTE | 2023-11-15 12:33 | W.PN.HOSP.TC ---
Addendum entered and electronically signed by Nghia Page MD 11/21/23 08:13:
Obesity 2/2 excess calories
afib is paroxysmal
Original Note:
Today's Communication/Plan
-
monitor vitals
see plan
dc today
time of discharge 38 minutes
Assessment / Plan
Assessment / Plan
General: Well Developed, Well Nourished, No Apparent Distress, Comfortable and Obese
HEENT: NormoCephalic, Nose Appears Normal and Ears Appear Normal
Respiratory: Clear and Decreased Breath Sounds
Cardiac: S1/S2, Irregular Rhythm and Tachycardia
GI: Soft, Non Tender and Non Distended
Musculoskeletal: No Clubbing, No Cyanosis and No Edema
Skin: Warm and Dry; No Rash
Neuro: Awake, Alert, Oriented and AO x 3
Psych: Calm
paroxysmal atrial fibrillation
Cardiology following, status post cardioversion 11/14/23, successfull
had ablation x2 in past
echo with reduced ef 45-50%
cw metoprolol
Acute CHF with reduced EF
lasix per cardiology; no lasix on dc per them; follow up outpatient
echo with EF 45-505
Last echo in 2021 with EF 50 to 55%. Mild dilated aortic root and ascending aorta
on metoprolol and entresto
cardiology following
On Coumadin, INR daily; recheck INR outpatient
started jardiance
Prediabetes
A1c 5.9
Monitor
Full code
Coumadin for DVTp
Anticipated Discharge: Today
Subjective/Interval History
-
Date of Service: November 15, 2023
denies pain
Objective Data
-
Labs:
Laboratory Results
11/15/23
03:28
WBC 7.9
Hgb 14.7
Hct 45.0
Plt Count 222
PT 21.2 H
INR 1.85
Sodium 138
Potassium 3.8
Chloride 106
Carbon Dioxide 27
BUN 20
Creatinine 0.9
Glucose 100 H
Calcium 9.2
Vital Signs:
Vital Signs
Temp Pulse Resp BP Pulse Ox
98.2 F 80 16 110/88 96
11/15/23 11:28 11/15/23 11:28 11/15/23 11:28 11/15/23 08:26 11/15/23 11:28
I&O
11/14/23 11/15/23 11/16/23
06:59 06:59 06:59
Intake Total 615 / 615 720 / 720
Output Total 2024 1250 / 1250 400 / 400
Balance -2024 / -2024 -5 / - 320 / 320
--- NOTE | 2023-11-15 13:00 | W.DCSUMMARY ---
Discharge Summary
Discharge Data
Date of Admission: 11/12/23
Date of Discharge: 11/15/23
-
Pending Results: No
Hospital Course
68-year-old male with past medical history of proximal atrial fibrillation came to the hospital with chest discomfort and shortness of breath known to be in atrial fibrillation with a rapid ventricular rate. Patient was initially started on
diltiazem and later underwent cardioversion on 11/14/2023. Post cardioversion patient went into normal sinus rhythm. There was also concern of patient having heart failure on admission echocardiogram was done which showed EF of 45 to 50% which was
mildly reduced from previous echocardiogram. Patient was then started on Jardiance. Initially patient was on IV Lasix in the hospital however cardiology did not recommended any Lasix upon discharge. Patient metoprolol dose was increased on this
hospitalization. Patient INR was 1.8 on the day of discharge so patient was instructed to get repeat INR check outpatient. Once patient symptoms improved, he was then discharged home with instructions to follow-up with all his physicians
outpatient.
Discharge Plan
-
Patient Disposition: Home (Routine Discharge)
Discharge Diagnosis/Procedures: Atrial fibrillation with rapid ventricular rate status post cardioversion
Acute congestive heart failure
Prediabetes
Diet: As tolerated
Activity: As tolerated
Additional Activity: INR check /5 outpatient
Driving Restrictions: As prior to admission
Specialty Instructions: Weigh Daily- Call MD for wt gain/loss 3 lbs overnight/5 lbs in 1 week
Referrals:
Arielle Graves CRNP [Specified Professional Personl] - 11/29/23 10:00 am
Bill Dodson DO [Family Provider] - in less than 1 week
Prescriptions:
New
metoprolol succinate 100 mg Tablet Extended Release 24 Hr
100 mg PO BID Qty: 60 0RF
Jardiance 10 mg Tablet
10 mg PO DAILY Qty: 30 0RF
Continued
atorvastatin 10 MG tablet
10 mg PO HS
Entresto 49-51 mg Tablet
1 tab PO BID Qty: 60 1RF
oxycodone-acetaminophen [Percocet] 10-325 mg Tablet
1 tab PO BID
Rx Instructions:
back pain
Myrbetriq 50 mg Tablet Extended Release 24 Hr
50 mg PO DAILY
warfarin [Jantoven] 5 mg tablet
9 mg PO QPM
Discontinued
metoprolol succinate 50 mg Tablet Extended Release 24 Hr
75 mg PO AMHS
metoprolol succinate
100 mg PO AMHS
Discharge Orders:
Discharge Patient (As Directed); Ordered 11/15/23
Ordered By: Nghia Page
Care Plan Goals
Care Plan Goals:
Problem: Readiness for enhanced knowledge related to diagnosis and treatment plan
Goal: Understand your diagnosis and treatment plan needs, including medications if applicable.
Instructions: Know your diagnosis, underlying causes and treatment plan options, including medications if applicable. Consult with your health care team to learn about your diagnosis and treatment plan, including medications if applicable.
Discharge Date and Time
Discharge Date/Time: 11/15/23 15:28
Print Language: SYRIAC
--- NOTE | 2023-11-15 16:53 | PN.CDI ---
CDI
- -
CDI:
Physician Documentation Request
Admit Date: 11/12/23 23:59
Dear Doctor Camilo,
Patient admitted for management of afib with rvr.
Hospitalist refers to the atrial fibrillation as paroxysmal
Cardiology as persistent.
In an attempt to clarify potential conflicting documentation, please clarify the type of atrial fibrillation.
Paroxysmal atrial fibrillation - terminates spontaneously or with intervention within 7 days of onset
Persistent atrial fibrillation - episodes of continuous AF that last more than 7 days and do not self-terminate
Other - please specify
Use of terms such as suspected, likely, concern for, or probable (associated with a specific diagnosis that is being evaluated, monitored, or treated as if it exists) are acceptable and can be coded in the inpatient setting, when documented at the
time of discharge.
Thank you,
Jeannette Bar RN, BSN
CDI Specialist
tiger text
Please use your independent medical judgment in providing your response.
--- NOTE | 2023-11-15 17:09 | PN.CDI ---
CDI
- -
CDI:
Physician Documentation Request
Admit Date: 11/12/23 23:59
Dear Doctor Camilo,
Please review the following and provide your response in the progress notes.
Height: 5 ft 11 inches
Weight: 299 (11/11)
BMI: 41.2 (11/11)
If possible, please provide an associated diagnosis related to the abnormal BMI, such as:
BMI > or = to 40
Overweight
Obesity:
Due to excess calories
Drug induced
Due to other cause
Severe or morbid obesity:
With alveolar hypoventilation (Obesity hypoventilation syndrome)
Without alveolar hypoventilation
- BMI is not significant
- Other
- Unable to determine
Use of terms such as suspected, likely, concern for, or probable (associated with a specific diagnosis that is being evaluated, monitored, or treated as if it exists) are acceptable and can be coded in the inpatient setting, when documented at the
time of discharge.
Thank you,
Jeannette Bar RN, BSN
CDI Specialist
tiger text
Please use your independent medical judgment in providing your response.
== END 2023-11-15 15:28 | disposition home or self-care (01) | DRG 291 ==
LOC: IVU 23:59
PROVIDERS: Clinical Nurse Specialist Family Health; Nuclear Medicine Nuclear Cardiology; ADMITTING PHYSICIAN Internal Medicine; ATTENDING PHYSICIAN Internal Medicine; CONSULT PHYSICIAN Internal Medicine Cardiovascular Disease; EMERGENCY PHYSICIAN Emergency Medicine; FAMILY PHYSICIAN Family Medicine
PROC: 5A2204Z Restoration of Cardiac Rhythm, Single (ICD-10-PCS; 2023-11-14)
DX: I11.0 Hypertensive heart disease with heart failure (principal); I50.21 Acute systolic (congestive) heart failure; I48.0 Paroxysmal atrial fibrillation; Z87.891 Personal history of nicotine dependence; Z79.01 Long term (current) use of anticoagulants; R73.03 Prediabetes; E66.09 Other obesity due to excess calories; Z68.39 Body mass index [BMI] 39.0-39.9, adult
CPT/HCPCS: 71046; 80048; 80053; 83036; 83880; 84484; 85025; 85027; 85610; 92960; 93005; 93306; 96374; 96375; 99285

== ENCOUNTER 2023-12-21 17:54 | Inpatient (IN) | payer OTHER, MEDICARE, SELFPAY ==
[2023-12-21 15:26] VITALS: BP 106/70
[2023-12-21 15:55] LABS: % Basophils 0.9 % (0-2); % Immature Granulocytes 0.9 % (0-0.5); % Lymphocytes 23.6 % (20.5-51.1); % Monocytes 8.3 % (1.7-9.3); % Neutrophils 63.3 % (42.2-75.2); Absolute Basophils 0.1 10^3/uL (0-0.2); Absolute Eosinophils 0.2 10^3/uL (0-0.7); Absolute Immature Granulocytes 0.1 10^3/uL (0-0.05); Absolute Lymphocytes 1.7 10^3/uL (1.2-3.4); Absolute Monocytes 0.6 10^3/uL (0.1-0.6); Absolute Neutrophils 4.7 10^3/uL (1.4-6.5); Hematocrit 41.6 % (39.0-52.0); Hemoglobin 13.7 g/dL (13.0-18.0); Mean Corp Hgb Conc. 32.9 g/dL (33.0-37.0); Mean Corpuscular Volume 97.2 fL (80.0-94.0); Mean Platelet Volume 10.8 fL (7.4-10.4); Nucleated Red Blood Cells % 0 % (-); Platelet Count 216 10^3/uL (130-400); Red Blood Cell Count 4.28 10^6/uL (4.70-6.10); White Blood Cell Count 7.4 10^3/uL (4.8-10.8)
[2023-12-21 16:03] LABS: INR 2.59; PT 28.1 Sec (11.4-14.6)
[2023-12-21 16:05] LABS: ALT (SGPT) 21 U/L (0-50); AST (SGOT) 21 U/L (17-59); Albumin 3.8 g/dl (3.5-5.0); Alkaline Phosphatase 92 U/L (38-126); Blood Urea Nitrogen 11 mg/dl (9-20); Calcium 9.3 mg/dl (8.4-10.2); Carbon Dioxide 25 mmol/L (22-30); Chloride 109 mmol/L (98-107); Glucose 109 mg/dl (70-99); Potassium 4.2 mmol/L (3.5-5.1); Sodium 140 mmol/L (135-145); Total Bilirubin 0.8 mg/dl (0.2-1.3); Total Protein 6.5 g/dl (6.3-8.2); eGFR > 60.00
[2023-12-21 16:16] LABS: Troponin I < 0.012 ng/ml
--- NOTE | 2023-12-21 17:05 | CON.CAR ---
Addendum entered and electronically signed by Sanya Newton MD 12/22/23 10:58:
Outpatient INR
11/25: 2.3
12/14: 3.1
Addendum entered and electronically signed by Sanya Newton MD 12/21/23 18:15:
68 yo male with PMH of paroxysmal A fib on warfarin, 2 prior ablations, and last DCCV 11/14/23. Now admitted with A fib with RVR. Will plan for tikosyn load. Exam with irregular rhythm, no murmur, trace LE.
INR today 2.59. Patient reports recent INR have been OK, but I have also requested these from outpatient labs.
Will start with tikosyn 500 mcg q12 hr, with monitoring of tele and EKG.
Original Note:
Consultation
Consultation Request
Date/Time Consultation Requested: 12/21/2023 17:00
Date/Time Consultation Performed: 12/21/2023 17:30
Requesting Provider: Dr. Lewis
Performing Provider: PA Casey for Dr. Newton
Reason for Consultation: Atrial fibrillation with right ventricular response
Medical History
-
History of Present Illness:
Cruzito Stark is a 68-year-old male (known to Dr. Francisco, his primary hospitality ambassador), with heart failure with mildly reduced EF, paroxysmal atrial fibrillation (on warfarin), hypertension, dyslipidemia, DJD, and prior prostate cancer who presented
to the emergency department with a chief complaint of palpitations. He is back in atrial fibrillation with rapid ventricular response. He has undergone ablation x 2 in the past. He had recurrence of his atrial fibrillation and underwent
cardioversion 11/14/2023. The plan is for antiarrhythmic therapy. His primary hospitality ambassador and EP discussed and agreed upon dofetilide. The patient is in agreeable.
Past Medical History
Past Medical History: Arrhythmias (Paroxysmal atrial fibrillation), Cancer (Prostate), CHF, HTN and Hypercholesterolemia
Past Surgical History: Orthopedic and Urological
Social History
Tobacco: Former Smoker
Alcohol: Occasional
Personal:
Living: With Family
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
Family History
Family History: Reviewed & Not Pertinent
Allergies / Home Medications
Allergy/AdvReac Type Severity Reaction Status Date / Time
No Known Drug Allergies Allergy Unknown Verified 12/21/23 15:26
�Medication �Instructions �Recorded �Confirmed �Type
atorvastatin 10 mg tablet 10 mg PO HS High cholesterol 01/27/18 11/13/23 History
sacubitril 49 mg-valsartan 51 mg 1 tab PO BID #60 tabs 03/30/22 11/13/23 Rx
tablet (Entresto)
mirabegron 50 mg tablet,extended 50 mg PO DAILY 11/13/23 11/13/23 History
release 24 hr (Myrbetriq)
oxycodone-acetaminophen 10 mg-325 1 tab PO BID 11/13/23 11/13/23 History
mg tablet (Percocet)
warfarin 5 mg tablet (Jantoven) 9 mg PO QPM 11/13/23 11/13/23 History
empagliflozin 10 mg tablet 10 mg PO DAILY #30 tabs 11/15/23 Rx
(Jardiance)
metoprolol succinate 100 mg 100 mg PO BID #60 tabs 11/15/23 Rx
tablet,extended release 24 hr
Review of Systems
-
History Source: Patient
All other systems: Negative unless noted
Cardiac: Palpitations
Abdomen/GI: No Symptoms
: No Symptoms
Physical Exam
Vital Signs
Temp Pulse Resp BP Pulse Ox
98.8 F 60 18 106/70 98
12/21/23 15:26 12/21/23 15:26 12/21/23 15:26 12/21/23 15:26 12/21/23 15:26
Lab Results
12/21/23 15:41
12/21/23 15:41
Troponin I < 0.012 ng/ml 12/21/23 15:41
Physical Exam
General: Well Developed, Well Nourished, No Apparent Distress and Comfortable
HEENT: Normocephalic, Anicteric and Moist Mucous Membranes
Respiratory: Clear and Non Labored Respirations
Cardiac: S1/S2 and Regular Rhythm
Breast: Deferred by me
GI: Soft, Non Tender, Non Distended and Normal Bowel Sounds
Rectal: Deferred by Provider
Genito-urinary: No Costovertebral Tender
Musculoskeletal: No Clubbing, No Cyanosis and No Edema
Skin: Warm and Dry
Neuro: AO x 3
Hematologic/Lymphatic: No Lymphadenopathy
Psych: Calm
Impression / Plan
-
Atrial fibrillation with rapid ventricular response
-CTI line block 01/02/2021, repeat PVI 04/22/2022
-Rhythm control, start dofetilide along with protocol
-Oral Anticoagulation: Warfarin, this is managed by his PCP
-Agreeable to transitioning to NOAC after back surgery, case management to beck
-[id number]: score at least 3 (Heart failure, HTN, age 65-74)
Cardiomyopathy
Heart failure with mildly reduced EF, chronic
-GDMT as tolerated
-Sacubitril�valsartan: 49-51 mg twice daily
-SGLT2: Empagliflozin 10 mg daily
-Beta-jason: Metoprolol succinate 100 mg twice daily
-Trend daily weight, I/O
Hypertension
-Follow-up with changes in medical therapy
Chronic back pain, surgery with Dr. Bonds plan for 01/30/2024
Former smoker
Prior prostate cancer
Obesity
Data Reviewed
-
EKG: Report Reviewed by me (Atrial fibrillation with right ventricular response, rate 115, nonspecific ST abnormality)
Medical Tests (Nuc Med, Echo etc): Report Reviewed by me (Prior echocardiogram as above)
Labs: Labs Reviewed by me
Old Records: Reviewed
--- NOTE | 2023-12-21 17:06 | ED.GENMED ---
History of Present Illness
General
Chief Complaint: Chest Pain
Source: patient and physician
Exam Limitations: none
Time Seen by Provider: 12/21/23 16:43
Nursing documentation reviewed up to this point in time: agreed with
Travel History
Have you had any contact with someone who has COVID-19?: No
Do you have any symptoms of coronavirus? Fever > 100 degrees, chills, cough, shortness of breath, sore throat, loss of taste or smell, muscle aches, or headache?: No
History of Present Illness
History of Present Illness:
68-year-old male referred to the ER for evaluation Long history of A-fib for many years, multiple ablations multiple cardioversions, has been in A-fib intermittently for the past week or so, spoke with his matcher referred here for admission I
did review briefly with his matcher plans for MD admitted started on Tikosyn
He takes Coumadin, metoprolol, Jardiance
Denies chest pain or shortness of breath he does feel dizzy and fatigued when he walks
Past History
Past History
ED Past Medical History: Arrthythmia (afib-on coumadin), Cancer (Prostate cancer), GERD, HTN, Hypercholesterolemia and Other (Osteoarthritis, back and neck pain, )
ED Past Surgical History: Cardiac (Cardioversion for A. fib), Orthopedic (Right carpal tunnel release, right elbow surgery 07/21/2017; bilateral hip replacement 2002, Achilles tendon repair, left knee arthroscopy Bilateral knee replacements) and
Urological (Prostatectomy)
Social History
Tobacco: Non-smoker
Alcohol: Occasional
Personal:
Living: with family
Employment: Employed
Family History
Family History: Hypertension
Phy Exam
Physical Exam
Physical Exam:
Physical Exam
General: no apparent distress, not acutely ill
Neck: No jaundice
Heart: Tachycardic
Lungs: no acute respiratory distress. clear bilaterally
Abdomen: Nontender
Neuro: alert and oriented. no focal neurological deficits
Skin: no rash
Psychiatric: well kept. interactive and cooperative
Extremities: no edema. no calf tenderness.
Scores
Heart Score for Chest Pain Patients
STEMI patient?: Not applicable
Course
Orders/Labs/Results
Orders:
Orders
12/21/23 15:24
Electrocardiogram (*1) Urgent
Reason for Study: Palpitations
EKG- Treatment ONCE
12/21/23 15:25
Electrocardiogram (*1) Urgent
Reason for Study: Chest Pain
EKG- Treatment ONCE
CXR2 [CR Chest - 2 Views ] Urgent
Comment:
Reason For Exam: chest pain
12/21/23 15:41
Complete Blood Count/With Diff Urgent
Comprehensive Metabolic Panel Urgent
PT/INR [Prothrombin Time] Urgent
Troponin I Urgent
Abnormal Lab Results
12/21/23
15:41
RBC 4.28 L 10^6/uL
(4.70-6.10)
MCV 97.2 H fL
(80.0-94.0)
MCH 32.0 H pg
(27.0-31.0)
MCHC 32.9 L g/dL
(33.0-37.0)
MPV 10.8 H fL
(7.4-10.4)
Abs Immat Gran (auto) 0.1 H 10^3/uL
(0-0.05)
Immature Gran % 0.9 H %
(0-0.5)
PT 28.1 H Sec
(11.4-14.6)
Chloride 109 H mmol/L
(98-107)
Glucose 109 H mg/dl
(70-99)
12/21/23 15:41
12/21/23 15:41
Vital Signs
Initial and Last Documented VS:
Initial Vital Signs
Temp Pulse Resp BP Pulse Ox
98.8 F 60 18 106/70 98
12/21/23 15:26 12/21/23 15:26 12/21/23 15:26 12/21/23 15:26 12/21/23 15:26
Last Documented Vital Signs
Temp Pulse Resp BP Pulse Ox
98.8 F 60 18 106/70 98
12/21/23 15:26 12/21/23 15:26 12/21/23 15:26 12/21/23 15:26 12/21/23 15:26
*Radiology
Radiology exam reviewed: preliminary read by ED provider
*Pulse Oximetry
Patient hypoxic: no
*EKG
Interpreted by ED Provider?: Yes
Interpretation: abnormal
Comparison EKG: changes noted
Heart Rate: 118
Rate: tachycardiac
Rhythm: a-fib
Ischemia: non-specific ST changes
*Economics Consultant Interpretation
Rate: tachycardiac
Interpretation: abnormal
Heart Rate: 118
Rhythm: a-fib
*Critical Care Note
Total Time (30-74mins, 75-104mins- exclusive of procedures): 8
Data Reviewed
Source: patient and physician
Update Note
Update Note:
Reviewed with cardiology plan is to admit to the hospitalist andrea Morris
ED Attending Note
-
Portions of this chart may have been created with voice recognition software.� Occasional wrong word or��sound alike� substitutions may have occurred due to the inherent limitations of voice recognition software.
Discharge Plan
Departure
Patient Disposition: Admit
Date of Disposition: 12/21/23
Time of Disposition: 17:12
Admit to: IVU
Presentation/result/management discussed w/ accepting MD/DO: Hospitalist
Patient with high blood pressure during this ER visit?: No
Condition: Good
Covid-19: Not Applicable
Discharge Problem:
Atrial fibrillation
Prescriptions:
No Action
atorvastatin 10 MG tablet
10 mg PO HS
Entresto 49-51 mg Tablet
1 tab PO BID Qty: 60 1RF
oxycodone-acetaminophen [Percocet] 10-325 mg Tablet
1 tab PO BID
Rx Instructions:
back pain
Myrbetriq 50 mg Tablet Extended Release 24 Hr
50 mg PO DAILY
warfarin [Jantoven] 5 mg tablet
9 mg PO QPM
metoprolol succinate 100 mg Tablet Extended Release 24 Hr
100 mg PO BID Qty: 60 0RF
Jardiance 10 mg Tablet
10 mg PO DAILY Qty: 30 0RF
Interventions
Interventions:
*Risk Screen - Suicide Last Done: 12/21/23 15:26
*Neglect/Abuse Screening Last Done: 12/21/23 15:26
ED- Fall Risk Assessment Last Done: 12/21/23 15:26
Discharge Date and Time
Print Language: SETSWANA
--- NOTE | 2023-12-21 17:13 | W.CARD.TIKOS ---
Initiate Tikosyn
-
I verify that the patient has not taken any verapamil (Isoptin/Calan), ketoconazole (Nizoral), cimetidine (Tagamet), trimethoprim (Trimpex), trimethoprim/sulfamethoxazole (Bactrim), megesterol (Megace), prochlorperazine (Compazine),
hydrochlorothiazide (HCTZ), dolutegravir (Tivicay) or any Class I or Class III anti-arrhythmic within the last three days
AND
I verify that the patient has not taken amiodarone within the last THREE months, or that the patient's amiodarone plasma concentration is <0.3 mcg/mL.
Creatinine 0.9 mg/dL (0.7-1.3) 12/21/23 15:41
I have assessed the baseline QTc interval (using QT for heart rate less than 60 bpm) and deemed the patient is appropriate for Dofetilide therapy. I understand that Tikosyn is contraindicated if the QTc is >440msec (500msec in patients with
ventricular conduction abnormalities).
Baseline QTc (in msec): 410
Ordering Physician: José Francisco
--- NOTE | 2023-12-21 17:22 | HPS.HSE ---
Family Physician
-
Family Physician:
Chief Complaint
-
Palpitations
History of Present Illness
68-year-old male past medical history of symptomatic atrial fibrillation status post cardioversion is presenting from home with complaint of palpitations. Patient stated at home he was feeling weakness and sometimes dizziness. Denies any focal
neurological problems. Denies headache. Denies any vision problems. States he feels like he is in atrial fibrillation with rapid ventricular response since Tuesday. States feeling fatigue and unable to sleep at night. Denies any chest pain.
Does states of dyspnea on exertion with walking 1 flight of stairs. Denies any orthopnea PND or lower extremity edema. Denies any lightheadedness or dizziness. Denies any nausea vomiting diarrhea or dysuria. Compliant with Coumadin. Called his
collection specialist earlier today who recommended patient to come into the ER.
Medical History
Past Medical History
Past Medical History: Reports Other
Additional Past Medical History:
Persistent atrial fibrillation
Chronic HFrEF
Primary hypertension
Severe spinal arthritis
Chronic back pain
Remote history of prostate cancer
History of NSVT
Past Surgical History: Reports Other
Additional Past Surgical History:
Right carpal tunnel release,
right elbow surgery 07/21/2017;
bilateral hip replacement 2002,
Achilles tendon repair,
left knee arthroscopy
Bilateral knee replacements
Prostatectomy
Social History
Tobacco: Non-smoker
Personal:
Living: With Family
Family History
Family History: Not pertinent
Allergies / Home Medications
Allergies reflects when Allergies were last updated in [facility].
Home Medications with original date entered in [facility]
Allergy/Medication List:
Allergies
Allergy/AdvReac Type Severity Reaction Status Date / Time
No Known Drug Allergies Allergy Unknown Verified 12/21/23 15:26
Home Medications
atorvastatin 10 mg tablet 10 mg PO HS High cholesterol 01/27/18
sacubitril 49 mg-valsartan 51 mg tablet (Entresto) 1 tab PO BID #60 tabs 03/30/22
mirabegron 50 mg tablet,extended release 24 hr (Myrbetriq) 50 mg PO DAILY 11/13/23
oxycodone-acetaminophen 10 mg-325 mg tablet (Percocet) 1 tab PO BID PRN moderate pain 11/13/23
warfarin 5 mg tablet (Jantoven) 8 mg PO QPM 11/13/23
empagliflozin 10 mg tablet (Jardiance) 10 mg PO DAILY #30 tabs 11/15/23
metoprolol succinate 100 mg tablet,extended release 24 hr 100 mg PO BID #60 tabs 11/15/23
Review of Systems
-
A 12 point ROS was completed and negative except as noted: Yes
Physical Exam
Vital Signs
Vital Signs
Temp Pulse Resp BP Pulse Ox
98.8 F 60 18 106/70 98
12/21/23 15:26 12/21/23 15:26 12/21/23 15:26 12/21/23 15:26 12/21/23 15:26
Physical Exam
General: Well Developed, Well Nourished and No Apparent Distress
HEENT: NormoCephalic, Moist mucous membranes and Atraumatic
Respiratory: Clear
Cardiac: S1/S2 and Irregular Rhythm; No Murmur or Rub
GI: Soft, Non Tender, Non Distended and Normal Bowel Sounds; No Organomegaly
Rectal: Deferred by Provider
Musculoskeletal: No Clubbing, No Cyanosis and No Edema
Skin: No Rash
Neuro: Awake, AO x 3, No Motor Deficits and Nonfocal/grossly intact
Psych: Calm
Laboratory Results
-
12/21/23 15:41
12/21/23 15:41
Laboratory Results
PT 28.1 Sec (11.4-14.6) H 12/21/23 15:41
INR 2.59 12/21/23 15:41
Total Bilirubin 0.8 mg/dl (0.2-1.3) 12/21/23 15:41
AST 21 U/L (17-59) 12/21/23 15:41
ALT 21 U/L (0-50) 12/21/23 15:41
Alkaline Phosphatase 92 U/L (38-126) 12/21/23 15:41
Troponin I < 0.012 ng/ml 12/21/23 15:41
Impression/Plan
-
#Symptomatic persistent atrial fibrillation with rapid ventricular response
#History of ablation
#status post cardioversion recently
Monitor on telemetry
Continue with Toprol
Per cardiology plan to start antiarrhythmic with Tikosyn
Continue to trend EKG to monitor QTc interval
INR therapeutic and continue home dose of Coumadin
INR at 2.6
Cardiology following
Chronic HFrEF
Continue with Jardiance, beta-jason.
Not on diuretics
Continue with Entresto
Check orthostatic vital signs
Check chest x-ray
Prediabetes
Recent A1c of 5.9
Monitor
Severe arthritis of the spine
Due to undergo spinal surgery at [facility] by Dr. Sam Bonds in January
DVT prophylaxis on Coumadin
Discussed with ER physician
Discussed with cardiology
I spent a total of 79 minutes with the patient or on the floor. More than 50% of this time involved counseling and coordination of care.
[2023-12-21 17:30] VITALS: BP 109/84
[2023-12-21 18:00] VITALS: BP 120/91
[2023-12-21 19:00] VITALS: BP 128/90; BP 128/98
[2023-12-21 19:51] VITALS: BP 127/74
[2023-12-21] MEDS: TOPROL XL 100 MG PO (20:21)
[2023-12-21] MEDS: TIKOSYN 500 MCG PO (20:22)
[2023-12-21] MEDS: ENTRESTO 49 MG/51 MG 1 TAB PO (20:22)
[2023-12-21] MEDS: COUMADIN 8 MG PO (21:51)
[2023-12-21] MEDS: LIPITOR 10 MG PO (21:51)
[2023-12-21 22:39] VITALS: BP 104/73
[2023-12-21] MEDS: MELATONIN 5 MG PO (22:47)
--- NOTE | 2023-12-21 23:37 | PTCARENOTE ---
Pt received from ED, HR Afib 130s-160s. Pt belongings w/ pt. Oriented to unit and hospital rules. Educated pt on how tikosyn works and why we need to do EKGs/monitor his rhythm for the first few doses. Pt states understanding but may need further
reinforcement. First dose of tikosyn administered. Around ~2111, pt convert to SR w/ PVCs - strip printed and confirmed w/ EKG (QTc: 486). Pt denies any CP, SOB, or lightheadedness/dizziness at this time. Informed to notify RN if any changes, call
[email or web address] within reach.
Pt requesting melatonin to help sleep, NYDIA Tsai contacted - melatonin ordered and administered.
[2023-12-22] VITALS (8 sets, daily range): BP systolic 113–134; BP diastolic 81–101; BMI 40.6
[2023-12-22 05:29] LABS: INR 2.51; PT 27.4 Sec (11.4-14.6)
[2023-12-22 05:49] LABS: Blood Urea Nitrogen 11 mg/dl (9-20); Calcium 8.8 mg/dl (8.4-10.2); Carbon Dioxide 25 mmol/L (22-30); Chloride 110 mmol/L (98-107); Estimated Creatinine Clearance > 125 ml/min; Glucose 95 mg/dl (70-99); Potassium 3.8 mmol/L (3.5-5.1); Sodium 138 mmol/L (135-145); eGFR > 60.00
--- NOTE | 2023-12-22 07:23 | W.PN.CD ---
Today's Communication / Plan
-
- Reduce Tikosyn to 250 mcg
- Continue Telemetry and loading protocol
- Add K and aldactone.
Impression / Plan
-
Atrial fibrillation with rapid ventricular response
-CTI line block 01/02/2021, repeat PVI 04/22/2022
-Rhythm control, dofetilide started. Has baseline PVCs at baseline. Significant ectopy / PVCs on telemetry noted.
-Reduce dose to 250 mcg. q12
- Replace K and start aldactone.
-Oral Anticoagulation: Warfarin, this is managed by his PCP
-Agreeable to transitioning to NOAC after back surgery, case management to beck
-[id number]: score at least 3 (Heart failure, HTN, age 65-74)
Cardiomyopathy
Heart failure with mildly reduced EF, chronic
-GDMT as tolerated
-Sacubitril�valsartan: 49-51 mg twice daily
-SGLT2: Empagliflozin 10 mg daily
-Beta-jason: Metoprolol succinate 100 mg twice daily
-Trend daily weight, I/O
Hypertension
-Follow-up with changes in medical therapy
Chronic back pain, surgery with Dr. Bonds plan for 01/30/2024
Former smoker
Prior prostate cancer
Obesity
Physical Exam
Vital Signs/Labs
Vital Signs
Temp Pulse Resp BP Pulse Ox
98.2 F 75 16 131/91 98
12/22/23 04:19 12/22/23 05:45 12/22/23 04:19 12/22/23 04:19 12/22/23 04:19
12/21/23 12/22/23 12/23/23
06:59 06:59 06:59
Actual Weight 137.1 kg
12/21/23 15:41
12/22/23 04:31
PT 27.4 Sec (11.4-14.6) H 12/22/23 04:31
INR 2.51 12/22/23 04:31
LAB Results
12/21/23
15:41
Troponin I < 0.012
Physical Exam
Constitutional: No acute distress and Comfortable
EENT: Anicteric and Moist mucous membranes
Cardiovascular: Rhythm & rate is regular and Systolic murmur present
Respiratory: Respiratory effort normal and Lungs clear to auscul.
GI: Soft, Distention absent, Non tender and Normal bowel sounds
Neuro/Psych: Alert, Oriented and AO x 3
Data Reviewed
-
Date of Service: December 22, 2023
Medical Decision Making: Reviewed Test Results and Independent Historian Assessment
EKG: Tracing Personally Visualized and interpreted (now in sinus rhythm)
Echo: Report Reviewed by me
Labs: Labs Reviewed by me
Old Records: Reviewed
[2023-12-22] MEDS: TIKOSYN 250 MCG PO ×2 (08:30→20:10)
[2023-12-22] MEDS: KCL 40 MEQ PO (08:31)
[2023-12-22] MEDS: ENTRESTO 49 MG/51 MG 1 TAB PO ×2 (08:31→20:10)
[2023-12-22] MEDS: TOPROL XL 100 MG PO ×2 (08:31→20:10)
[2023-12-22] MEDS: TYLENOL 650 MG PO ×2 (08:32→20:11)
[2023-12-22] MEDS: ALDACTONE 25 MG PO (08:32)
[2023-12-22] MEDS: JARDIANCE 10 MG PO (08:33)
[2023-12-22] MEDS: MYRBETRIQ EXTENDED RELEASE PO (08:35)
--- NOTE | 2023-12-22 11:17 | CM ---
CM following for DC planning needs.
Met w/ patient at bedside to complete initial assessment.
Pt. informs that he resides in a private, 2 story home w/ 3 AVRIL w/ spouse, dtr., granddtr. and MIL.
Functionally, patient is indep. w/ ADLs, mobility with use of a SPC.
Anticipate DC to home once medically stable, no needs.
Will cont. to follow.
--- NOTE | 2023-12-22 11:25 | W.PN.HOSP.TC ---
Today's Communication/Plan
-
Continue with Tikosyn protocol
Aldactone added
Monitor blood pressure
Daily INR
Assessment / Plan
Assessment / Plan
General: Well Developed, Well Nourished and No Apparent Distress
HEENT: NormoCephalic, Moist mucous membranes and Atraumatic
Respiratory: Clear
Cardiac: S1/S2 and Irregular Rhythm; No Murmur or Rub
GI: Soft, Non Tender, Non Distended and Normal Bowel Sounds; No Organomegaly
Rectal: Deferred by Provider
Musculoskeletal: No Clubbing, No Cyanosis and No Edema
Skin: No Rash
Neuro: Awake, AO x 3, No Motor Deficits and Nonfocal/grossly intact
Psych: Calm
#Symptomatic persistent atrial fibrillation with rapid ventricular response
#History of ablation
#status post cardioversion recently
Monitor on telemetry. Converted to normal sinus rhythm.
Continue with Toprol
Per cardiology plan to start antiarrhythmic with Tikosyn and dose decreased to 20 to 50 mcg every 12
Continue to trend EKG to monitor QTc interval
INR therapeutic and continue home dose of Coumadin
INR at 2.5
Cardiology following
Chronic HFrEF
Continue with Jardiance, beta-jason.
Not on diuretics
Continue with Entresto
Check orthostatic vital signs
Started on Aldactone and potassium per cardiology
Chest x-ray negative for infiltrate
Monitor blood pressure with additional BP meds/diuretics
Prediabetes
Recent A1c of 5.9
Monitor
Severe arthritis of the spine
Due to undergo spinal surgery at [facility] by Dr. Sam Bonds in January
DVT prophylaxis on Coumadin
Anticipated Discharge: > 48 hours
Subjective/Interval History
-
Date of Service: December 22, 2023
Status continues to feel weak
Overnight converted to normal sinus rhythm
Objective Data
-
Labs:
Laboratory Results
12/22/23
04:31
PT 27.4 H
INR 2.51
Sodium 138
Potassium 3.8
Chloride 110 H
Carbon Dioxide 25
BUN 11
Creatinine 0.8
Glucose 95
Calcium 8.8
Vital Signs:
Vital Signs
Temp Pulse Resp BP Pulse Ox
98.5 F 75 18 113/84 95
12/22/23 11:00 12/22/23 08:31 12/22/23 11:00 12/22/23 08:31 12/22/23 11:00
I&O
12/21/23 12/22/23 12/23/23
06:59 06:59 06:59
Intake Total 720 / 720 480 / 480
Output Total 300 / 300 400 / 400
Balance 420 / 420 80 / 80
--- NOTE | 2023-12-22 11:27 | CM ---
Call to [facility] [phone] to assess cost of Tikosyn. Estimated co pay for Tikosyn is $0/mo.
[2023-12-22] MEDS: COUMADIN 8 MG PO (17:58)
--- NOTE | 2023-12-22 19:08 | PTCARENOTE ---
Pt reported 5/10 shooting neck pain this morning which ultimately resolved with position change and tylenol.
Tikosyn dose reduced to 250MCG this morning, occasional PVC's and one 6 beat run of NSVT noted @16:11, pt asymptomatic. Nava Castellon NP notified, ordered to continue with Tikosyn loading and monitor for further NSVT.
[2023-12-22] MEDS: LIPITOR 10 MG PO (20:10)
--- NOTE | 2023-12-22 23:27 | PTCARENOTE ---
QTc following Tikosyn dose #3 483 ms. Pt. continues in NSR with PVC's. Medicated with Tylenol for neck pain with adequate results obtained. Pt. currently sleeping.
[2023-12-23 04:08] VITALS: BP 128/81
[2023-12-23] MEDS: TYLENOL 650 MG PO (04:21)
[2023-12-23 04:24] VITALS: BMI 40.9
[2023-12-23 04:35] LABS: INR 2.51; PT 27.4 Sec (11.4-14.6)
[2023-12-23 04:50] LABS: Blood Urea Nitrogen 10 mg/dl (9-20); Calcium 8.8 mg/dl (8.4-10.2); Carbon Dioxide 23 mmol/L (22-30); Chloride 109 mmol/L (98-107); Estimated Creatinine Clearance > 125 ml/min; Glucose 92 mg/dl (70-99); Magnesium 2.1 mg/dl (1.6-2.3); Potassium 3.9 mmol/L (3.5-5.1); Sodium 137 mmol/L (135-145); eGFR > 60.00
[2023-12-23 06:49] VITALS: BP 130/93
[2023-12-23] MEDS: TOPROL XL 100 MG PO ×2 (08:28→19:45)
[2023-12-23] MEDS: MYRBETRIQ EXTENDED RELEASE 50 MG PO (08:28)
[2023-12-23] MEDS: JARDIANCE 10 MG PO (08:28)
[2023-12-23] MEDS: KCL 40 MEQ PO (08:28)
[2023-12-23] MEDS: ALDACTONE 25 MG PO (08:29)
[2023-12-23] MEDS: TIKOSYN 250 MCG PO ×2 (08:29→19:45)
[2023-12-23] MEDS: ENTRESTO 49 MG/51 MG 1 TAB PO ×2 (08:29→19:45)
--- NOTE | 2023-12-23 11:22 | CM ---
CM following for DC planning needs.
Met w/ patient at bedside. Pt. is hopeful for DC to home tomorrow. Offers no concerns at this time.
Reviewed estimated cost of Tikosyn for $0/month.
Call to [facility], they DO NOT Have Tikosyn in stock but can order for delivery by next wk. Per pharmacy, they have stock at [facility] in [place].
Pt. to be given a 3 day RX for Tikosyn prior to DC to allow for ordering for any medication at outpatient pharmacy.
Anticipated DC plan is for home, no needs.
CM to follow.
[2023-12-23 11:54] VITALS: BP 133/90
--- NOTE | 2023-12-23 12:03 | W.PN.CD ---
Today's Communication / Plan
-
Tolerating current Dofetilide dosing
Home after 6th dose of dofetilide
Will STOP KCl NOW
With new med (Aldactone) will need BMP in 1-2 and again 3-4 weeks
Impression / Plan
-
Atrial fibrillation with rapid ventricular response
- Prior ablation(s)
- In sinus on dofetilide
- Dofetilide loading
- Oral Anticoagulation: Warfarin, this is managed by his PCP
- Agreeable to transitioning to NOAC after back surgery, case management to beck
- [id number]: score at least 3 (Heart failure, HTN, age 65-74)
K+
- Replace dK and started Aldactone.
Heart failure with mildly reduced EF, chronic
-GDMT as tolerated
-Sacubitril�valsartan: 49-51 mg twice daily
-SGLT2: Empagliflozin 10 mg daily
-Beta-jason: Metoprolol succinate 100 mg twice daily
-Trend daily weight, I/O
Hypertension
Chronic back pain, surgery with Dr. Bonds plan for 01/30/2024
Former smoker
Prior prostate cancer
Obesity
Subjective:
No CP or dyspnea
Physical Exam
Vital Signs/Labs
Vital Signs
Temp Pulse Resp BP Pulse Ox
98.4 F 71 16 130/93 97
12/23/23 11:54 12/23/23 11:54 12/23/23 11:54 12/23/23 08:28 12/23/23 11:54
12/22/23 12/23/23 12/24/23
06:59 06:59 06:59
Actual Weight 137.1 kg 132.8 kg
12/21/23 15:41
12/23/23 04:15
PT 27.4 Sec (11.4-14.6) H 12/23/23 04:15
INR 2.51 12/23/23 04:15
Magnesium 2.1 mg/dl (1.6-2.3) 12/23/23 04:15
LAB Results
12/21/23
15:41
Troponin I < 0.012
Physical Exam
Constitutional: No acute distress
EENT: Anicteric
Cardiovascular: Rhythm & rate is regular and Pedal edema is absent
Respiratory: Respiratory effort normal and Lungs clear to auscul.
GI: Soft and Distention absent
Neuro/Psych: AO x 3
Data Reviewed
-
Date of Service: December 23, 2023
--- NOTE | 2023-12-23 12:12 | W.PN.HOSP.TC ---
Today's Communication/Plan
-
Tikosyn protocol
Coumadin
trend inr
Assessment / Plan
Assessment / Plan
General: Well Developed, Well Nourished and No Apparent Distress
HEENT: NormoCephalic, Moist mucous membranes and Atraumatic
Respiratory: Clear
Cardiac: S1/S2 and Irregular Rhythm; No Murmur or Rub
GI: Soft, Non Tender, Non Distended and Normal Bowel Sounds; No Organomegaly
Rectal: Deferred by Provider
Musculoskeletal: No Clubbing, No Cyanosis and No Edema
Skin: No Rash
Neuro: Awake, AO x 3, No Motor Deficits and Nonfocal/grossly intact
Psych: Calm
#Symptomatic persistent atrial fibrillation with rapid ventricular response
#History of ablation
#status post cardioversion recently
Monitor on telemetry. Converted to normal sinus rhythm.
Continue with Toprol
Per cardiology plan to start antiarrhythmic with Tikosyn and dose decreased 500mcg on admission to 250mcg q12h.
Continue to trend EKG to monitor QTc interval
INR therapeutic and continue home dose of Coumadin
INR at 2.5
DC home after loading dose completion protocol
Cardiology following
Chronic HFrEF
Continue with Jardiance, beta-jason.
Not on diuretics
Continue with Entresto
Check orthostatic vital signs
Started on Aldactone and potassium per cardiology
Chest x-ray negative for infiltrate
BP stable. K wnl.
Monitor blood pressure with additional BP meds/diuretics
Prediabetes
Recent A1c of 5.9
Monitor
Severe arthritis of the spine
Due to undergo spinal surgery at [place] by Dr. Sam Bonds in January
DVT prophylaxis on Coumadin
Anticipated Discharge: > 48 hours
Subjective/Interval History
-
Date of Service: December 23, 2023
Feeling better
Denies any lightheaded dizziness or chest pain
Objective Data
-
Labs:
Laboratory Results
12/23/23
04:15
PT 27.4 H
INR 2.51
Sodium 137
Potassium 3.9
Chloride 109 H
Carbon Dioxide 23
BUN 10
Creatinine 0.7
Glucose 92
Calcium 8.8
Vital Signs:
Vital Signs
Temp Pulse Resp BP Pulse Ox
98.4 F 71 16 130/93 97
12/23/23 11:54 12/23/23 11:54 12/23/23 11:54 12/23/23 08:28 12/23/23 11:54
I&O
12/22/23 12/23/23 12/24/23
06:59 06:59 06:59
Intake Total 720 / 720 480 / 480
Output Total 300 / 300 1400 / 1400
Balance 420 / 420 -920 / -920
[2023-12-23 15:23] VITALS: BP 133/98
[2023-12-23] MEDS: PERCOCET 5/325 1 TABLET PO (16:38)
[2023-12-23] MEDS: COUMADIN 8 MG PO (16:39)
[2023-12-23 19:42] VITALS: BP 126/92
[2023-12-23] MEDS: LIPITOR 10 MG PO (19:48)
--- NOTE | 2023-12-23 20:34 | PTCARENOTE ---
Assumed care @ 1900. patient in chair. SR HR 60-70. Tikosyn dose #5 given. EKG at 2200. Family at bedside,call melendrez in reach
--- NOTE | 2023-12-23 22:00 | PTCARENOTE ---
Patient in bed resting. Tikosyn dose #5 given at 2000, EKG completed QTC 477. VSS, lights dimmed, call melendrez in reach
[2023-12-23 22:15] VITALS: BP 129/89
[2023-12-24 04:12] VITALS: BP 111/78
[2023-12-24 04:37] LABS: INR 2.71; PT 28.7 Sec (11.4-14.6)
[2023-12-24 06:00] VITALS: BMI 40.5
[2023-12-24] MEDS: ENTRESTO 49 MG/51 MG 1 TAB PO (08:11)
[2023-12-24] MEDS: MYRBETRIQ EXTENDED RELEASE PO ×2 (08:11→08:16)
[2023-12-24 08:12] VITALS: BP 132/85
[2023-12-24] MEDS: TIKOSYN 250 MCG PO (08:12)
[2023-12-24] MEDS: ALDACTONE 25 MG PO (08:12)
[2023-12-24] MEDS: JARDIANCE 10 MG PO (08:13)
[2023-12-24] MEDS: TOPROL XL 100 MG PO (08:13)
--- NOTE | 2023-12-24 08:32 | W.PN.CD ---
Today's Communication / Plan
-
received dose #6 of dofetilide 250 mcg this AM
-I sent this script to his [facility] so they can start filling it
if stable QTc 2 hr post, he can be discharged today
aldactone 25mg added this admission
Impression / Plan
-
Atrial fibrillation with rapid ventricular response: admitted for dofetilide load with close monitoring of EKG and tele
- Prior ablation(s)
- In sinus on dofetilide 250 mcg q12hr
- Oral Anticoagulation: Warfarin, this is managed by his PCP
- Agreeable to transitioning to NOAC after back surgery next month
- [id number]: score at least 3 (Heart failure, HTN, age 65-74)
Hypokalemia
- Repleted K and started Aldactone 25mg daily.
Heart failure with mildly reduced EF, chronic
-GDMT as tolerated
-Sacubitril�valsartan: 49-51 mg twice daily
-SGLT2: Empagliflozin 10 mg daily
-Beta-jason: Metoprolol succinate 100 mg twice daily
-Trend daily weight, I/O
Hypertension
Chronic back pain, surgery with Dr. Bonds plan for 01/30/2024
Former smoker
Prior prostate cancer
Obesity
Subjective:
Denies CP or dyspnea
Physical Exam
Vital Signs/Labs
Vital Signs
Temp Pulse Resp BP Pulse Ox
98.3 F 74 16 111/78 96
12/24/23 06:55 12/24/23 06:55 12/24/23 06:55 12/24/23 04:12 12/24/23 06:55
12/23/23 12/24/23 12/25/23
06:59 06:59 06:59
Actual Weight 132.8 kg 131.8 kg
12/21/23 15:41
12/23/23 04:15
PT 28.7 Sec (11.4-14.6) H 12/24/23 04:17
INR 2.71 12/24/23 04:17
Magnesium 2.1 mg/dl (1.6-2.3) 12/23/23 04:15
LAB Results
12/21/23
15:41
Troponin I < 0.012
Physical Exam
Constitutional: No acute distress and Comfortable
EENT: Moist mucous membranes
Cardiovascular: Rhythm & rate is regular, Pedal edema is absent, JVD pressure is normal and Systolic murmur absent
Respiratory: Respiratory effort normal and Lungs clear to auscul.
GI: Soft, Distention absent and Flat
Neuro/Psych: AO x 3
Data Reviewed
-
Date of Service: December 24, 2023
EKG: Tracing Personally Visualized and interpreted (last EKG sinus with QTc 477) and Other (sinus, one V triplet (reviewed with EP and acceptable))
Labs: Labs Reviewed by me
[2023-12-24 10:13] LABS: Blood Urea Nitrogen 10 mg/dl (9-20); Carbon Dioxide 24 mmol/L (22-30); Chloride 105 mmol/L (98-107); Estimated Creatinine Clearance 124 ml/min; Glucose 109 mg/dl (70-99); Potassium 4.2 mmol/L (3.5-5.1); Sodium 135 mmol/L (135-145); eGFR > 60.00
[2023-12-24 10:14] LABS: Calcium 9.6 mg/dl (8.4-10.2)
--- NOTE | 2023-12-24 10:21 | W.PN.HOSP.TC ---
Addendum entered and electronically signed by Bc Alexander MD 12/24/23 12:01:
Patient completed Tikosyn loading dose.
Discussed with Dr. LARSEN- EKG looks good and cardiology placed Tikosyn PAPER prescription on the chart. Okay for discharge home
Original Note:
Today's Communication/Plan
-
see note
Assessment / Plan
Assessment / Plan
General: Well Developed, Well Nourished and No Apparent Distress
HEENT: NormoCephalic, Moist mucous membranes and Atraumatic
Respiratory: Clear
Cardiac: S1/S2 and Irregular Rhythm; No Murmur or Rub
GI: Soft, Non Tender, Non Distended and Normal Bowel Sounds; No Organomegaly
Rectal: Deferred by Provider
Musculoskeletal: No Clubbing, No Cyanosis and No Edema
Skin: No Rash
Neuro: Awake, AO x 3, No Motor Deficits and Nonfocal/grossly intact
Psych: Calm
#Symptomatic persistent atrial fibrillation with rapid ventricular response
#History of ablation
#status post cardioversion recently
Monitor on telemetry. Converted to normal sinus rhythm.
Continue with Toprol
Per cardiology plan to start antiarrhythmic with Tikosyn and dose decreased 500mcg on admission to 250mcg q12h.
Continue to trend EKG to monitor QTc interval
INR therapeutic and continue home dose of Coumadin
Completed Tikosyn loading dose protocol.
INR at 2.7
Cardiology following
Chronic HFrEF
Continue with Jardiance, beta-jason.
Not on diuretics
Continue with Entresto
Check orthostatic vital signs
Started on Aldactone 25mg daily per cards. K wnl. Cr stable.
Chest x-ray negative for infiltrate
BP stable. K wnl.
Monitor blood pressure with additional BP meds/diuretics
Prediabetes
Recent A1c of 5.9
Monitor
Severe arthritis of the spine
Due to undergo spinal surgery at [place] by Dr. Sam Bonds in January
DVT prophylaxis on Coumadin
More than 30 minutes spent in discharge including
Final examination of the patient
Summarizing hospital stay
Instructions for continuing care to all relevant caregivers
Preparation of discharge records, prescriptions, and referral forms
Total time spent (in minutes): 52
Anticipated Discharge: Today
Subjective/Interval History
-
Date of Service: December 24, 2023
Feeling better. Remains in normal sinus rhythm
Denies chest pain shortness breath palpitations.
Objective Data
-
Labs:
Laboratory Results
12/24/23 12/24/23
04:17 09:19
PT 28.7 H
INR 2.71
Sodium 135
Potassium 4.2
Chloride 105
Carbon Dioxide 24
BUN 10
Creatinine 0.8
Glucose 109 H
Calcium 9.6
Vital Signs:
Vital Signs
Temp Pulse Resp BP Pulse Ox
98.3 F 85 16 132/85 96
12/24/23 06:55 12/24/23 09:00 12/24/23 06:55 12/24/23 08:12 12/24/23 06:55
I&O
12/23/23 12/24/23 12/25/23
06:59 06:59 06:59
Intake Total 480 / 480 240 / 240
Output Total 1400 / 1400 975 / 975
Balance -920 / -920 -735 / -735
--- NOTE | 2023-12-24 10:24 | W.DCSUMMARY ---
Discharge Summary
Discharge Data
Date of Admission: 12/21/23
Date of Discharge: 12/24/23
-
Pending Results: No
Hospital Course
68-year-old male past medical history of atrial fibrillation, chronic HFrEF, prediabetes, severe arthritis of the spine was present with palpitation. Patient was found to be in atrial fibrillation with rapid ventricular response. Cardiology
evaluated patient. Patient with prior history of ablation and cardioversion recently and seems to be unsuccessful. Patient was admitted to IVU and started on Tikosyn loading dose protocol. Patient converted to normal sinus rhythm and Tikosyn dose
was decreased. Patient INR was therapeutic. Blood pressure was elevated and Aldactone was added. Patient EKG stabilized and within normal limits. Patient be discharged home with outpatient blood work and cardiology follow-up on Tikosyn.
Discharge Plan
-
Patient Disposition: Home (Routine Discharge)
Discharge Diagnosis/Procedures: Atrial fibrillation with rapid ventricular response
Condition: Fair
Diet: 2 Gram Sodium and Restrict fluids to 48 oz
Activity: With assistance and As tolerated
Driving Restrictions: As prior to admission
Blood Work: BMP in 3-4 days via primary doctor.
Referrals:
Bill Dodson DO [Family Provider] -
Prescriptions:
New
dofetilide 250 mcg Capsule
250 mcg PO Q12H 30 Days Qty: 60 0RF
spironolactone 25 mg Tablet
25 mg PO DAILY 30 Days Qty: 30 0RF
Continued
atorvastatin 10 MG tablet
10 mg PO HS
Entresto 49-51 mg Tablet
1 tab PO BID Qty: 60 1RF
oxycodone-acetaminophen [Percocet] 10-325 mg Tablet
1 tab PO BID PRN (Reason: moderate pain)
Patient Comments:
12/21/2023: last filled 11/28/23, 60 tabs for 30 days from [facility]
mirabegron [Myrbetriq] 50 mg Tablet Extended Release 24 Hr
50 mg PO DAILY
warfarin [Jantoven] 5 mg tablet
8 mg PO QPM
metoprolol succinate 100 mg Tablet Extended Release 24 Hr
100 mg PO BID Qty: 60 0RF
Jardiance 10 mg Tablet
10 mg PO DAILY Qty: 30 0RF
Discharge Orders:
Discharge Patient (As Directed); Ordered 12/24/23
Ordered By: Bc Alexander
Care Plan Goals
Care Plan Goals:
Problem: Readiness for enhanced knowledge related to diagnosis and treatment plan
Goal: Understand your diagnosis and treatment plan needs, including medications if applicable.
Instructions: Know your diagnosis, underlying causes and treatment plan options, including medications if applicable. Consult with your health care team to learn about your diagnosis and treatment plan, including medications if applicable.
Discharge Date and Time
Print Language: AMHARIC
[2023-12-24 11:40] VITALS: BP 136/103
[2023-12-24 12:57] VITALS: BP 138/101
--- NOTE | 2023-12-24 13:15 | PTCARENOTE ---
Pt BP 136/103, rechecked again 138/101, Dr Alexander aware. Pt denies pain, he is awaiting lunch. Script sent to our pharmacy for 6 doses of Tikosyn to be sent home with Pt upon discharge.
== END 2023-12-24 14:15 | disposition home or self-care (01) | DRG 309 ==
LOC: IVU 17:54
PROVIDERS: Emergency Medicine; ADMITTING PHYSICIAN Hospitalist; EMERGENCY PHYSICIAN Emergency Medicine; FAMILY PHYSICIAN Family Medicine; OTHER PHYSICIAN Internal Medicine
DX: I48.19 Other persistent atrial fibrillation (principal); I50.22 Chronic systolic (congestive) heart failure; Z68.41 Body mass index [BMI] 40.0-44.9, adult; Z87.891 Personal history of nicotine dependence; I11.0 Hypertensive heart disease with heart failure; M47.9 Spondylosis, unspecified; E66.9 Obesity, unspecified; E87.6 Hypokalemia
CPT/HCPCS: 71046; 80048; 80053; 83735; 84484; 85025; 85610; 93005; 99285

== ENCOUNTER → 2024-01-17 11:38 | Outpatient (REF) | payer OTHER, MEDICARE, SELFPAY ==
[2024-01-17 12:46] LABS: Albumin 4.1 g/dl (3.5-5.0); Blood Urea Nitrogen 12 mg/dl (9-20); Calcium 9.6 mg/dl (8.4-10.2); Carbon Dioxide 27 mmol/L (22-30); Chloride 106 mmol/L (98-107); Glucose 97 mg/dl (70-99); Potassium 4.4 mmol/L (3.5-5.1); Sodium 141 mmol/L (135-145); eGFR > 60.00
== END ==
LOC: REG 11:38
PROVIDERS: ATTENDING PHYSICIAN Internal Medicine Cardiovascular Disease; FAMILY PHYSICIAN Family Medicine
DX: I10 Essential (primary) hypertension (principal); I48.0 Paroxysmal atrial fibrillation; Z79.01 Long term (current) use of anticoagulants; I42.9 Cardiomyopathy, unspecified
CPT/HCPCS: 36415; 80069

== ENCOUNTER → 2024-04-13 14:19 | Outpatient (REF) | payer OTHER, MEDICARE, SELFPAY | LOC: RAD 14:19 | PROVIDERS: ATTENDING PHYSICIAN Orthopaedic Surgery Orthopaedic Surgery of the Spine; FAMILY PHYSICIAN Family Medicine; REFERRING PHYSICIAN Internal Medicine Cardiovascular Disease | DX: M79.604 Pain in right leg (principal); M79.605 Pain in left leg; I82.409 Acute embolism and thrombosis of unspecified deep veins of unspecified lower extremity | CPT/HCPCS: 93970 ==

== ENCOUNTER → 2024-06-28 10:08 | Outpatient (REF) | payer OTHER, SELFPAY ==
[2024-06-28 11:36] LABS: PT 18.7 Sec (11.4-14.6)
[2024-06-28 11:37] LABS: APTT 52.4 Sec (23.4-35.0)
== END ==
LOC: REG 10:08
PROVIDERS: ATTENDING PHYSICIAN Internal Medicine Cardiovascular Disease; FAMILY PHYSICIAN Family Medicine
DX: I10 Essential (primary) hypertension (principal)
CPT/HCPCS: 36415; 85610; 85730

== ENCOUNTER → 2025-01-04 07:01 | Outpatient (REF) | payer OTHER, SELFPAY | LOC: RCS 07:01 | PROVIDERS: ATTENDING PHYSICIAN Internal Medicine Cardiovascular Disease; FAMILY PHYSICIAN Family Medicine | DX: I48.0 Paroxysmal atrial fibrillation (principal); E78.00 Pure hypercholesterolemia, unspecified | CPT/HCPCS: 93306 ==